=== PATIENT | female | born 1980 | race Caucasian/White ===

== ENCOUNTER 2016-09-30 00:14 | Inpatient (IN) | payer BC, OTHER ==
[2016-09-30] VITALS (10 sets, daily range): BP systolic 111–125; BP diastolic 56–64; PULSE 58–89; RESP 18–20; Ht 167.6 cm; Wt 64.0 kg
[~2016-09-30] VITALS: Ht 167.6 cm; Wt 64.0 kg
[2016-09-30 02:05] LABS: ADD SCAN DIFF NO
[2016-09-30 02:09] LABS: BASOPHILS % 0.4 % (0.0-2.0); EOSINOPHILS # 0.3 10^3/ul (0.0-0.5); EOSINOPHILS % 2.8 % (0.0-7.0); HEMATOCRIT 38.4 % (37.0-47.0); LYMPHOCYTES # 4.6 10^3/ul (0.8-2.9); LYMPHOCYTES % 44.6 % (15.0-51.0); MEAN CORPUSCULAR HEMOGLOBIN 30.8 pg (29.0-33.0); MEAN CORPUSCULAR HGB CONC 33.9 g/dl (32.0-37.0); MEAN PLATELET VOLUME 10.8 fl (7.4-10.4); MONOCYTE # 0.7 10^3/ul (0.3-0.9); NEUTROPHIL # 4.6 10^3/ul (1.6-7.5); NEUTROPHILS % 44.9 % (39.0-77.0); PLATELET COUNT 262 10^3/UL (140-415); RED BLOOD COUNT 4.22 10^6/ul (4.20-5.40); RED CELL DISTRIBUTION WIDTH 11.9 % (11.5-14.5); WHITE BLOOD COUNT 10.3 10^3/ul (4.8-10.8)
[2016-09-30 02:25] LABS: INR 0.96; PROTIME 12.8 Sec (12.2-14.2)
[2016-09-30 02:26] LABS: PARTIAL THROMBOPLASTIN TIME 29.3 Sec (25.0-35.0)
--- NOTE | 2016-09-30 02:27 | RADRPT ---
PROCEDURE: CHEST - 1 VIEW CLINICAL INDICATION: 36-year-old female with chest pain. TECHNIQUE: A single frontal AP portable view of the chest was performed. The images were reviewed on a PACS workstation. COMPARISON: None. FINDINGS: The cardiomediastinal silhouette has a normal appearance. There is no evidence for an infiltrate. There is no evidence for congestive heart failure. There is no evidence for pneumothorax. The osseou s structures are intact. IMPRESSION: No evidence for active cardiopulmonary disease. .Fer Zhou MD, MD Date Time Electronically viewed and signed by .Fer Zhou MD, on 09/30/2016 02:27 .M/
[2016-09-30 02:30] LABS: ALBUMIN 4.1 g/dl (3.3-4.9); CHLORIDE 102 mmol/L (97-110); SODIUM 140 mmol/L (135-144)
[2016-09-30 02:31] LABS: POTASSIUM 3.4 mmol/L (3.5-5.1)
[2016-09-30 02:33] LABS: ALANINE AMINOTRANSFERASE 36 IU/L (13-69); ALKALINE PHOSPHATASE 82 IU/L (42-121); ANION GAP 15 (8-16); ASPARTATE AMINO TRANSFERASE 26 IU/L (15-46); BILIRUBIN,INDIRECT 0.4 mg/dl (0-1.1); BILIRUBIN,TOTAL 0.4 mg/dl (0.2-1.3); BLOOD UREA NITROGEN 14 mg/dl (7-20); CARBON DIOXIDE 26 mmol/L (21-31); CREATININE 0.84 mg/dl (0.44-1.00); GLUCOSE 82 mg/dl (70-220); TOTAL PROTEIN 7.5 g/dl (6.1-8.1)
[2016-09-30 02:34] LABS: CALCIUM 9.7 mg/dl (8.4-10.2)
[2016-09-30 02:56] LABS: B-TYPE NATRIURETIC PEPTIDE 50 PG/ML (0-125)
[2016-09-30 03:14] LABS: TROPONIN-I < 0.012 ng/ml (0.00-0.12)
--- NOTE | 2016-09-30 04:13 | RADRPT ---
PROCEDURE: Noncontrast CT Head. CLINICAL INDICATION: Pain. TECHNIQUE: Noncontrast CT of the head was obtained. The administered radiation dose was CTDI vol = 45 mGy, DLP = 720 mGy-cm. COMPARISON: No pertinent prior examinations were submitted for comparison. FINDINGS: The ventricles and sulci are within normal limits. There is no acute intracranial hemorrhage or ext ra-axial fluid collection. There is no mass effect. No midline shift is identified. There is no loss of long-white differentiation to suggest acute infarction. The orbits are within normal limits. The paranasal sinuses and mastoid air cells are without fluid. No destructive osseous lesion is identified. IMPRESSION: No acute findings. RPTAT: HIKT .Dawson Castillo MD, MD Date Time Electronically viewed and signed by .Dawson Castillo MD, on 09/30/2016 04:12 .T/
--- NOTE | 2016-09-30 05:03 | ERA ---
ER Documentation Chief Complaint Date/Time DATE: 09/30/16 TIME: 05:01 Chief Complaint c/p midsternal cp, sob x2 days. no difficulty walking today. HPI This is a 36-year-old female comes in with complaints of on and off a sending paralysis being in the lower extremities and going up to her waist for the past year. She said it has been getting progressively worse over the past 3 days. She feels that he has difficulty breathing when she lies flat. No nausea no vomiting no chills. No other current complaints. No visual acuity changes. ROS All systems reviewed and are negative except as per history of present illness. Allergies Allergies: Uncoded Allergies: LIDOCAIN (Allergy, Mild, 09/30/16) PMhx/Soc Medical and Surgical Hx: pt denies Medical Hx, pt denies Surgical Hx Hx Alcohol Use: No Hx Substance Use: No Hx Tobacco Use: No Smoking Status: Never smoker Physical Exam Vitals Vital Signs Date Time Temp Pulse Resp B/P Pulse Ox O2 Delivery O2 Flow Rate FiO2 09/30/16 00:22 97.7 72 20 133/76 100 Physical Exam Const: [] Head: Atraumatic Eyes: Normal Conjunctiva ENT: Normal External Ears, Nose and Mouth. Neck: Full range of motion..~ No meningismus. Resp: Clear to auscultation bilaterally Cardio: Regular rate and rhythm, no murmurs Abd: Soft, non tender, non distended. Normal bowel sounds Skin: No petechiae or rashes Back: No midline or flank tenderness Ext: No cyanosis, or edema Neur: Awake and alert Psych: Normal Mood and Affect Result Diagram: 09/30/16 0120 09/30/16 0120 Results 24 hrs Laboratory Tests Test 09/30/16 01:20 White Blood Count 10.310^3/ul Red Blood Count 4.2210^6/ul Hemoglobin 13.0g/dl Hematocrit 38.4% Mean Corpuscular Volume 91.0fl Mean Corpuscular Hemoglobin 30.8pg Mean Corpuscular Hemoglobin Concent 33.9g/dl Red Cell Distribution Width 11.9% Platelet Count 36347^3/UL Mean Platelet Volume 10.8fl Neutrophils % 44.9% Lymphocytes % 44.6% Monocytes % 7.0% Eosinophils % 2.8% Basophils % 0.4% Nucleated Red Blood Cells % 0.0/100WBC Neutrophils # 4.610^3/ul Lymphocytes # 4.610^3/ul Monocytes # 0.710^3/ul Eosinophils # 0.310^3/ul Basophils # 0.010^3/ul Nucleated Red Blood Cells # 0.010^3/ul Prothrombin Time 12.8Sec Prothrombin Time Ratio 1.0 INR International Normalized Ratio 0.96 Activated Partial Thromboplast Time 29.3Sec Sodium Level 140mmol/L Potassium Level 3.4mmol/L Chloride Level 102mmol/L Carbon Dioxide Level 26mmol/L Anion Gap 15 Blood Urea Nitrogen 14mg/dl Creatinine 0.84mg/dl Glucose Level 82mg/dl Calcium Level 9.7mg/dl Total Bilirubin 0.4mg/dl Direct Bilirubin 0.00mg/dl Indirect Bilirubin 0.4mg/dl Aspartate Amino Transf (AST/SGOT) 26IU/L Alanine Aminotransferase (ALT/SGPT) 36IU/L Alkaline Phosphatase 82IU/L Troponin I < 0.012ng/ml B-Type Natriuretic Peptide 50PG/ML Total Protein 7.5g/dl Albumin 4.1g/dl Globulin 3.40g/dl Albumin/Globulin Ratio 1.20 Procedures/MDM EKG: Rate/Rhythm: Normal Sinus Rhythm QRS, ST, T-waves: No changes consistent w/ acute ischemia Impression: No evidence of ischemia or arrhythmia Chest X-ray 1V Interpreted by me: Soft Tissue: No acute abnormalities Bones: No acute abnormalities Mediastinum/Cardiac Silhouette/Lungs: No acute abnormalities CT of the head is negative Medical decision-making: Patient has evidence of a sending paralysis. Neurological examination is showing decreased 2 point discrimination in the lower extremity. At this point Guyon Bhatti syndrome is a consideration. Patient has been or consented for a lumbar puncture via fluoroscopy in the morning. Will be admitted to hospitalist to telemetry for neurological consult further evaluation and management. Departure Diagnosis: Primary Impression: Ascending paralysis Condition: Serious ANDRZEJ MAEJameson Sep 30, 2016 05:03
[2016-09-30] MEDS ORDERED: morphine 2 MG INJ IV PRN (07:00)
[2016-09-30] MEDS ORDERED: ONDANSETRON 4 MG INJ IV PRN (07:00)
[2016-09-30] MEDS ORDERED: NITROGLYCERIN (SL) 0.4 MG TAB SL PRN (07:00)
[2016-09-30] MEDS ORDERED: POTASSIUM CHLORIDE (SR) 10 MEQ TAB PO ONE (07:30)
--- NOTE | 2016-09-30 07:44 | HP ---
DATE OF ADMISSION: 09/30/2016 TIME SEEN: 6:30 a.m. CHIEF COMPLAINT: Chest pain and difficulty walking. HISTORY OF PRESENT ILLNESS: The patient is a 36-year-old female with no significant past medical history who presented to the Emergency Department with the above stated chief complaints. She initially stated that, 2 days ago, she started experiencing midsternal chest pain as well as shortness of breath, right upper extremity numbness and since then has been having significant difficulty with ambulation. She denied any trauma. She does have a history of leg surgery 11 years ago. She denied any headache, fever, chills, palpitations , facial droop or seizure-like activity. On further questioning however, she stated that her symptom of ataxia started a year and half ago when all of a sudden she had difficulty ambulation with decreased sensation, which lasted 1 month. When I asked if she went to hospital , she initially said she only saw primary Doctor in clinic. When I seemed surprised about why she didn't go to hospital, she said she actually went [facility] where she said she saw the head of the Neurology department and had extensive work-up including MRIs and nerve conduction studies. She said all were negative. Since her first episode, she said she has been experiencing similar symptoms every few months and has been to different hospitals, mainly [facility]. At one time she said one Doctor told her that she is "a hysterical woman" and that is her problem. Patient changes her story many times especially when it comes to duration / frequency of her symptoms and also which side of her body she is currently having a problem. she said both, then right side, then left lower ext an so on. When I said to her she told ER that she initially reported right sided deficit, she corrected her self and said yes it is my right side of my body. On physical exam, she reported decreased sensation on right upper and lower ext and she seemed to have decreased strength as well. When she initially came to her room, nurse tried to walk her, but she was having problem initiating movement When she presented to the ER, her vitals were stable and laboratory values showed a potassium of 3.4, otherwise CBC and CMP were unremarkable. Brain CT and chest x-ray were negative for any acute processes. REVIEW OF SYSTEMS: A 12-point review of systems was performed and negative except as in HPI. PAST MEDICAL HISTORY: As per HPI. PAST SURGICAL HISTORY: Leg surgery. SOCIAL HISTORY: Denied a history of tobacco, alcohol or illicit drug use. ALLERGIES: LIDOCAINE. HOME MEDICATIONS: None. PHYSICAL EXAMINATION: VITAL SIGNS: Stable. GENERAL: No acute distress. She is answering questions appropriately, able to speak in full sentences. HEENT: No obvious head deformity. Pupils reactive to light. Extraocular muscles intact. CARDIOVASCULAR: Regular rate and rhythm. No extra sounds. LUNGS: Clear. ABDOMEN: Soft, nontender, nondistended. Positive bowel sounds. EXTREMITIES: No edema. NEUROLOGIC: There is decreased sensation and strength in the right upper and lower extremity. She also is ataxic. No facial droop. No double vision. No tongue deviation. LABORATORY: Potassium 3.4, otherwise CBC and CMP are within normal limits. IMAGING: Chest x-ray and brain CT are negative for any acute processes. IMPRESSION: 1. Gait ataxia with right upper and lower extremity numbness and weakness. 2. Chest pain and shortness of breath. 3. Mild hypokalemia. PLAN: She will be monitored on the telemetry unit. She will be ruled out for ACS, given presentation of chest pain, so we will trend troponin. We will provide breathing treatments as needed for shortness of breath. We will place her on oxygen as needed. As far as her gait ataxia and upper extremity numbness is concerned, a brain CT in the ER was negative. We will obtain an MRI and MRA of brain and neck. We will place a neurology consult. She will have physical therapy. We need to attempt to get all her records at least from [facility] and [facility] Further workup and management per clinical course. Dictated By: ANDRZEJ RANDLE/BRENNA Conf#: [id number] DID#: [id number] SOURAV
[2016-09-30] MEDS: HEPARIN 5,000 UNIT/0.5 ML VIAL SC SCH ×2 (09:00→21:00)
[2016-09-30 17:47] LABS: BARBITURATES NEGATIVE (NEGATIVE); BENZODIAZEPINES NEGATIVE (NEGATIVE); CANNABINOIDS NEGATIVE (NEGATIVE); COCAINE NEGATIVE (NEGATIVE); OPIATES NEGATIVE (NEGATIVE)
--- NOTE | 2016-09-30 19:31 | RADRPT ---
PROCEDURE: MR Thoracic Spine with and without contrast. CLINICAL INDICATION: 36-year-old female with weakness in the bilateral lower extremities. TECHNIQUE: An MRI of the thoracic spine was performed with and without contrast utilizing multiple sequences in the sagittal and axial planes. 10 cc of Magnevist was utilized without complication I mages reviewed on a high-resolution PACS system.. COMPARISON: No prior studies are available for comparison. FINDINGS: The thoracic kyphosis is maintained. The vertebral body heights are maintained. The intervertebral discs are normal in signal and height. The marrow signal intensity is grossly unremarkable. No ac nulato fracture or subluxation is seen. The thoracic spinal cord is normal in signal and caliber. No paravertebral fluid collection or mass is seen. The postcontrast images demonstrate no abnormal cor d, leptomeninges or paraspinal soft. The visualized portions of the chest and upper abdomen are kierra ssly unremarkable. On axial images, the posterior margin of the discs, thecal sac and neural foramin a are normal in appearance at all levels. IMPRESSION: 1. Normal MRI of the thoracic spine with and without contrast. No significant narrowing of the thor acic thecal sac or neural foramina. 2. The thoracic spinal cord is normal in signal and caliber. 3. No abnormal contrast enhancement is seen. RPTAT: HGAS .Luis Cowart MD, Date Time Electronically viewed and signed by .Luis Cowart MD, on 09/30/2016 19:31 .S/
--- NOTE | 2016-09-30 19:54 | RADRPT ---
PROCEDURE: MRI Lumbar Spine with and Without. CLINICAL INDICATION: 36-year-old female with bilateral lower extremity weakness TECHNIQUE: An MRI of the lumbar spine was performed with multiple sequences in the sagittal and ax ial planes with and without contrast. 10 cc of Magnevist was utilized without complication. Images reviewed on a high-resolution PACS system. COMPARISON: None available at the time of dictation. FINDINGS: The alignment of the lumbar spine is normal. No vertebral body subluxation is seen. There is desic cation the L4 55 S1 intervertebral discs with mild loss of disc-space height at L5 S. There is a tr ángel amount of fluid within the L5-S1 disc, without significant edema in the adjacent endplates. No evidence of diskitis/osteomyelitis at this time. The remaining intervertebral discs are normal in he ight and signal intensity. The vertebral body heights and marrow signal are normal. The conus medu llaris is visible at the L1 level and appears grossly normal. The lumbar nerve roots are normal in appearance. The paraspinal soft tissues are unremarkable. No significant paraspinal soft tissue sw elling. Postcontrast images demonstrate no abnormal enhancement involving the conus medullaris, lum bar spinal nerve roots, leptomeninges or paraspinal soft tissues. No abnormal enhancement is seen in the L5-S1 disc-space L1-L2: The posterior margin of the disc is normal in appearance. No significant disc bulge or prot rusion is evident. The central canal and neural foramina are adequately patent. L2-L3: The posterior margin of the disc is normal in appearance. No significant disc bulge or prot rusion is evident. The central canal and neural foramina are adequately patent. L3-L4: There is a 3 mm left paracentral/foraminal disc bulge. The thecal sac is patent measuring 1 2 mm midline AP diameter. There is mild effacement of the left lateral recess. There is mild left neural foraminal narrowing. The right lateral recess and right neural foramen are patent. L4-L5: There is a 2 mm annular disc bulge with underlying contained annular fissure. The thecal sa c and lateral recesses are patent. There is mild bilateral facet spondylosis. There is mild bilate ral neural foraminal narrowing. L5-S1: There moderate spondylosis at L5-S1 with a superimposed 2-3 mm annular disc bulge. The thec al sac and lateral recesses are patent. There is mild bilateral facet spondylosis. There is mild b ilateral neural foraminal narrowing. IMPRESSION: 1. 3 mm left paracentral/foraminal disc bulge at L3-4 with mild narrowing of the left lateral reces s and mild left neural foraminal narrowing. 2. Moderate spondylosis at L5-S1 with mild amount of fluid in the disc space, most likely related t o degenerative changes at this level, without evidence of discitis/osteomyelitis. No significant na rrowing of the lumbar thecal sac, lateral recesses or neural foramina. Short interval follow-up is r ecommended to rule out progression. 3. No abnormal contrast enhancement. RPTAT: HGAS .Luis Cowart MD, Date Time Electronically viewed and signed by .Luis Cowart MD, on 09/30/2016 19:54 .S/
[2016-09-30] MEDS ORDERED: BACLOFEN 10 MG TAB PO ONE (21:00)
[2016-10-01] VITALS (10 sets, daily range): BP systolic 107–115; BP diastolic 59–68; PULSE 61–83; RESP 17–18
--- NOTE | 2016-10-01 03:04 | CONS ---
DATE OF ADMISSION: 09/30/2016 DATE OF CONSULTATION: 09/30/2016 TYPE OF CONSULTATION: Neurological. Thank you, Dr. Schaffer, for your kind referral for evaluation of ataxia. HISTORY OF PRESENT ILLNESS: The patient is a 36-year-old lady with essentially no past medical history who stated that in 03/2015 she started having episodes which may usually start with a sensation of numbness in the feet and at times hands, at times ascending, followed with severe fatigue to the point of feeling generally weak along with a sensation of severe tightness of the chest. Those episodes may last for several weeks and then gradually disappear, and she may have a few months with essentially no symptoms until next time. At some point she had a sensation of numbness and weakness in the face, and she has been to different hospitals, usually emergency room of [facility]. The patient stated that she went to see one of the neurologists at [facility] privately because her insurance did not cover such a referral, and it was only once, and at that time she got MRI of the brain done which did not show any abnormality, and she did not get any definite answers. She was referred to a general neurologist, she could not recall who he was, who suggested possibility of psychogenic symptoms though stated that patient had polyneuropathy. She did have a nerve conduction study done which according to the patient was normal. No records available for review. She stated that at some point she developed similar symptoms when she had injection of lidocaine in dental office almost immediately. No other provoking factors. She denied being depressed or stressed out. This time, patient presented with similar symptoms. She stated that they started somewhere in April last year or May and last for 4 months, but lately in a few days, she could not ambulate normally because of weakness in the legs. She states that the weakness sort of fluctuating and at times she gets cramps and spasms, and at times she could not move the foot. She denied any spinal pain. No bowel or bladder problems. She does experience headaches, especially lately in last few months, at least 1 or few a week. The headache is usually bifrontal, throbbing, not associated with photophobia but with mild nausea. She denies any visual changes with headache with exception of occasional dimming of vision. Usually headache might linger for several hours and get better with Advil or Tylenol. The patient complains of constantly feeling short of breath because of tight sensation in the chest, sort of very tight hug. PAST MEDICAL HISTORY: None. ALLERGIES: LIDOCAINE POSSIBLY. MEDICATIONS PRIOR TO ADMISSION: None. Currently she was put on heparin for DVT prevention. SOCIAL HISTORY: No alcohol, tobacco or drug use. FAMILY HISTORY: Not contributory. REVIEW OF SYSTEMS: All pertinent positives included in the above history of present illness. PHYSICAL EXAMINATION: VITAL SIGNS: Temperature 98.2, pulse 82, respirations 18, blood pressure 125/ 62. GENERAL: The patient not in acute distress, lying in bed. HEENT: Normocephalic, atraumatic head. NECK: No carotid bruits. No thyromegaly. LUNGS: Clear to auscultation bilaterally. CARDIAC: Normal cardiac rhythm and sounds. ABDOMEN: Soft. EXTREMITIES: No cyanosis, clubbing or edema. NEUROLOGIC: She is awake, alert and oriented x3 with fluent speech. Cranial nerve examination shows intact visual sanchez. Pupils reactive from 4 to 2 mm bilaterally. Extraocular movements intact without nystagmus. Symmetrical face. Preserved facial strength. The patient claimed to have diminished sensation on the right side of the face to all modalities including splitting forehead to vibration. Tongue is in midline. Palate elevates symmetrically. Motor strength examination shows normal strength, bulk and tone in upper extremities, in lower extremities normal bulk and tone. The patient claims severe weakness in the legs, more so in the left leg, essentially no movements across the ankle, trace of extension of the knee on the left and maybe 3/5 on the right, better hip flexion about 3+/5. When distracted, she seemed to have better strength. Also, when asked to elevate the legs, she seemed to be able to push weaker heel down with noticeable strength. Sensory examination shows diminution of perception of vibration in bilateral fingers and toes, diminished pinprick in the bilateral feet and distal forelegs but more so, and more of right-sided numbness to pinprick and temperature noticed in whole right-sided extremities. Deep tendon reflexes 2+ throughout. Downgoing toes bilaterally. Coordination is preserved on [id number]-[id number]-[id number] testing. No dysmetria or tremor. Gait was checked. The patient was able to sit up, transfer herself to the edge of the bed and then get up on her feet. She claimed to feel unsteady on her feet but was able to sustain her weight and take a few steps. IMPRESSION: Knpy-ngy-l-half history of intermittent symptoms of weakness, numbness, thoracic tightness. The patient seems to have signs of polyneuropathy on examination which seem to be consistent and symptoms of right- sided hemihypesthesia not as consistent because she splits forehead to vibratory sense, and also weakness in the legs claimed by the patient seemed to be much oxidation operator, if present at all, when distracted or when asked to walk, so clearly there is some psychological component to the symptoms. I think it is still reasonable to perform full workup and imaging of neuraxis with contrast. By the way, MRI of the thoracic spine was done as well as an MRI of the lumbar spine. Thoracic was done with contrast and was normal. Lumbar without contrast shows mild degenerative changes of lumbar 3-4 level with disk protrusion as well as moderate spondylosis L5-S1. I think it is reasonable to obtain MRI of the brain and cervical spine for completeness of the workup. Will obtain lumbar puncture, send it for basic testing of protein, glucose, cell count and differential as well as MS panel. For evaluation of polyneuropathy which seemed to be generally present, I will obtain hemoglobin A1c, TSH, B12, serum immunofixation, also will request HIV testing as well as ROSA panel. Continue physical therapy. If workup is negative, probably the patient could be discharged. She stated that she changed her insurance and now she is able to follow up with academic neurologists at [facility], so followup with them would be preferable compared to a general neurologist in the area. Thank you very much for this interesting consultation. Dictated By: STEPHANY GERMAIN/BRENNA Conf#: [id number] DID#: [id number] SOURAV
[2016-10-01 07:41] LABS: ADD SCAN DIFF NO
[2016-10-01 07:44] LABS: BASOPHILS % 0.4 % (0.0-2.0); EOSINOPHILS # 0.3 10^3/ul (0.0-0.5); EOSINOPHILS % 2.8 % (0.0-7.0); HEMATOCRIT 39.4 % (37.0-47.0); HEMOGLOBIN 13.1 g/dl (12.0-16.0); LYMPHOCYTES # 2.9 10^3/ul (0.8-2.9); LYMPHOCYTES % 32.5 % (15.0-51.0); MEAN CORPUSCULAR HEMOGLOBIN 30.4 pg (29.0-33.0); MEAN CORPUSCULAR HGB CONC 33.2 g/dl (32.0-37.0); MEAN CORPUSCULAR VOLUME 91.4 fl (82.0-101.0); MEAN PLATELET VOLUME 10.6 fl (7.4-10.4); MONOCYTE # 0.8 10^3/ul (0.3-0.9); MONOCYTES % 8.5 % (0.0-11.0); NEUTROPHILS % 55.5 % (39.0-77.0); PLATELET COUNT 254 10^3/UL (140-415); RED BLOOD COUNT 4.31 10^6/ul (4.20-5.40); RED CELL DISTRIBUTION WIDTH 11.9 % (11.5-14.5)
[2016-10-01 07:56] LABS: POTASSIUM 4.3 mmol/L (3.5-5.1)
[2016-10-01 07:59] LABS: CREATININE 0.7 mg/dl (0.44-1.00)
[2016-10-01 08:00] LABS: CALCIUM 9.4 mg/dl (8.4-10.2); MAGNESIUM 1.9 mg/dl (1.7-2.5); PHOSPHORUS 4.8 mg/dl (2.5-4.9)
[2016-10-01] MEDS: HEPARIN 5,000 UNIT/0.5 ML VIAL SC SCH ×2 (09:00→21:00)
--- NOTE | 2016-10-01 16:42 | PN ---
Date/Time of Note Date/Time of Note DATE: 10/01/16 TIME: 16:40 Assessment/Plan VTE Prophylaxis VTE Prophylaxis Intervention: heparin Lines/Catheters IV Catheter Type (from [facility]): [facility] Urinary Cath still in place: No Assessment/Plan Chief Complaint/Hosp Course 1. Gait ataxia with right upper and lower extremity numbness and weakness -MRI Lumbar and Thoracic negative, F/U on Cervical and Brain MRI as well as LP -Neuro consult appreciated -cont PT 2. Chest pain and shortness of breath likely 2/2 anxiety 3. Mild hypokalemia-resolved PPx- Heparin Problems: Subjective 24 Hr Interval Summary Musculoskeletal: bone/joint pain Exam/Review of Systems Vital Signs Vitals Vital Signs Date Time Temp Pulse Resp B/P Pulse Ox O2 Delivery O2 Flow Rate FiO2 10/01/16 16:10 77 10/01/16 15:50 97.2 18 114/62 100 09/30/16 06:00 Room Air Intake and Output 09/30/16 09/30/16 10/01/16 15:00 23:00 07:00 Intake Total 400 ml 650 ml Balance 400 ml 650 ml Exam Constitutional: alert, oriented Respiratory: clear to auscultation Cardiovascular: regular rate and rhythm Gastrointestinal: soft, No distended Musculoskeletal: nl extremities to inspection Results Result Diagram: 10/01/16 0647 10/01/16 0653 Results 24 hrs Laboratory Tests Test 09/30/16 16:43 10/01/16 06:42 10/01/16 06:47 10/01/16 06:53 Urine Opiates Screen NEGATIVE Urine Barbiturates NEGATIVE Urine Amphetamines Screen NEGATIVE Urine Benzodiazepines Screen NEGATIVE Urine Cocaine Screen NEGATIVE Urine Cannabinoids NEGATIVE Hemoglobin A1c 4.8 Vitamin B12 Level 899 Thyroid Stimulating Hormone (TSH) 2.140 HIV (1&2) Antibody NEGATIVE White Blood Count 9.0 Red Blood Count 4.31 Hemoglobin 13.1 Hematocrit 39.4 Mean Corpuscular Volume 91.4 Mean Corpuscular Hemoglobin 30.4 Mean Corpuscular Hemoglobin Concent 33.2 Red Cell Distribution Width 11.9 Platelet Count 254 Mean Platelet Volume 10.6 H Neutrophils % 55.5 Lymphocytes % 32.5 Monocytes % 8.5 Eosinophils % 2.8 Basophils % 0.4 Nucleated Red Blood Cells % 0.0 Neutrophils # 5.0 Lymphocytes # 2.9 Monocytes # 0.8 Eosinophils # 0.3 Basophils # 0.0 Nucleated Red Blood Cells # 0.0 Sodium Level 138 Potassium Level 4.3 Chloride Level 106 Carbon Dioxide Level 24 Anion Gap 12 Blood Urea Nitrogen 13 Creatinine 0.70 Glucose Level 88 Calcium Level 9.4 Phosphorus Level 4.8 Magnesium Level 1.9 Medications Medications Current Medications Morphine Sulfate (morphine) 2 mg Q4H PRN IV PAIN LEVEL 6-10; Start 09/30/16 at 07:00 Nitroglycerin (Nitroglycerin (Sl Tab) 0.4 Mg) 1 tab Q5M PRN SL ANGINA; Start at 07:00 Ondansetron HCl (Zofran Inj) 4 mg Q4H PRN IV NAUSEA AND/OR VOMITING; Start at 07:00 Heparin Sodium (Porcine) (Heparin (5000 Units/0.5 ml)) 5,000 unit BID SC ; Start 09/30/16 at 09:00 JULES VIERA Oct 01, 2016 16:42
--- NOTE | 2016-10-01 17:58 | RADRPT ---
PROCEDURE: MR Brain without and with contrast. CLINICAL INDICATION: Neurologic deficit, possible multiple sclerosis, ataxia TECHNIQUE: A high resolution MRI of the brain was performed utilizing the following sequences: Sag ittal and axial T1 weighted, axial T2 weighted, axial FLAIR, coronal GRE, and axial diffusion weight ed with ADC mapping. Images were reviewed high-resolution PACS workstation. Additional axial and co laurel post contrast images were obtained. 10cc of Magnevist was administered intravenously without r eported complication. COMPARISON: Correlation head CT yesterday FINDINGS: No acute parenchymal hemorrhage, significant mass effect, or midline shift. No evidence of recent in farct. A tiny focus of GRE susceptibility is seen in the right inferior frontal lobe (series 4 image 28). There is also curvilinear enhancement at this location extending to the right frontal cortex (series 10 image 96). Single FLAIR hyperintense focus in the right external capsule. No FLAIR hype rintense radiating lesions are seen perpendicular to the callosal septal margin. No posterior fossa lesions are identified. No evidence of lesion enhancement or acute diffusion restriction. The ventricles are normal in size for age. Normal flow voids are visible in the proximal intracrania l arteries suggesting their patency. The visualized paranasal sinuses and mastoids are grossly clear. No abnormal mass like parenchymal, dural or leptomeningeal enhancement. IMPRESSION: Single FLAIR hyperintense focus in the right external capsule is nonspecific. This may be a sequela of headaches, trauma, or possibly demyelination. However, the overall MR imaging pattern is not ty pical for multiple sclerosis. No evidence of lesion enhancement or diffusion restriction. 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 RPTAT: AA .Hernán Alcocer MD, MD Date Time Electronically viewed and signed by .Hernán Alcocer MD, MD on 10/01/2016 17:58 .T/
--- NOTE | 2016-10-01 18:01 | RADRPT ---
PROCEDURE: MRI Cervical spine without and with contrast CLINICAL INDICATION: Neurologic deficit, possible multiple sclerosis TECHNIQUE: An MRI of the cervical spine was performed utilizing the following sequences: Sagittal and axial T1 weighted, sagittal and axial T2 weighted, axial GRE, and sagittal T2 weighted with fat saturation. Additional post contrast sequences were acquired. 10 cc Magnevist was administered intr avenously without reported complication. COMPARISON: none FINDINGS: No acute vertebral compression fracture. No diffuse marrow replacing process. The cervical cord demonstrates normal signal intensity. C2-3: The disk is preserved height. No significant disk protrusion, spinal canal or foraminal sten osis. C3-4: The disk is preserved height. No significant disk protrusion, spinal canal or foraminal nadir nosis. C4-5: The disk is preserved height. Minimal posterior disk bulge without significant spinal canal or foraminal narrowing. C5-6: The disk is preserved height. Tiny central disk annular fissure. No significant spinal canal or foraminal stenosis. C6-7: The disk is preserved height. No significant disk protrusion, spinal canal or foraminal sten osis. C7-T1: The disk is preserved height. No significant disk protrusion, spinal canal or foraminal nadir nosis. No abnormal intraspinal enhancement. IMPRESSION: No evidence of cord edema or cord demyelination. Minimal degenerative changes C4-5 and C5-6. RPTAT: AA .Hernán Alcocer MD, MD Date Time Electronically viewed and signed by .Hernán Alcocer MD, on 10/01/2016 18:00 .T/
[2016-10-01] MEDS ORDERED: IBUPROFEN 400 MG TAB PO PRN (20:30)
[2016-10-01] MEDS ORDERED: BACLOFEN 10 MG TAB PO ONE (20:30)
--- NOTE | 2016-10-01 21:07 | RADRPT ---
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 Physician: ANDRZEJ LUU Quality: Technically Difficult Study Procedures: Transthoracic echocardiogram with complete 2D, M-Mode, and doppler examination. Indications: Chest Pressure. 2D/M Mode Doppler Measurement Value Normal Ranges Measurement Value Normal Ranges LVIDd 2D 4.8 3.5 - 5.6 cm AV Peak Charli 1.0 m/sec LVIDs 2D 3.0 2.1 - 4.1 cm AV Peak PG 4.0 mmHg FS 2D 36.8 % LVOT Peak Charli 0.9 m/sec LVPWd 2D 0.8 0.6 - 1.1 cm LVOT Peak PG 3.0 mmHg IVSd 2D 0.7 0.6 - 1.1 cm MV E Peak Charli 0.9 m/sec IVS/LVPW 2D 0.9 MV A Peak Charli 0.7 m/sec AoR Diam 2D 2.5 2.0 - 3.7 cm MV E/A 1.4 LA/Ao 2D 1 0 - 1 MV Decel Time 141 msec EDV 2D 111.0 cm3 MV E/A 1.4 ESV 2D 28.1 cm3 LA Dimen 2D 3.1 2.3 - 4.0 cm Findings Left Ventricle: Normal left ventricular systolic function. Normal left ventricular cavity size. Normal left ventricular wall thickness. Ejection fraction is visually estimated at 55 %. Tissue Doppler/Mitral Doppler indices are within normal limits. Right Ventricle: Normal right ventricular size. Normal right ventricular systolic function. Left Atrium: The left atrium is normal in size. Right Atrium: The right atrium is normal in size. Mitral Valve: Normal appearance and function of the mitral valve with trace physiologic regurgitation. Aortic Valve: Normal appearance of the aortic valve. No significant aortic stenosis or insufficiency. Tricuspid Valve: Normal appearance and function of the tricuspid valve with trace physiologic regurgitation. Normal right ventricular systolic pressure. Pulmonic Valve: Normal pulmonic valve appearance. Pericardium: Normal pericardium with no significant pericardial effusion. Aorta: Normal aortic root. IVC: Normal size and normal respiratory collapse consistent with normal right atrial pressure. Conclusions 1.Normal left ventricular systolic function. Normal left ventricular cavity size. Normal left ventricular wall thickness. Ejection fraction is visually estimated at 55 %. Tissue Doppler/Mitral Doppler indices are within normal limits. 2.Normal appearance and function of the mitral valve with trace physiologic regurgitation. 3.Normal appearance and function of the tricuspid valve with trace physiologic regurgitation. Normal right ventricular systolic pressure. Electronically Signed By: Chris Boone 01-Oct-2016 21:06:15 -0700 Patient Name: SINAI RUANO Study Date: 30-Sep-2016 [id number]
[2016-10-02] VITALS (12 sets, daily range): BP systolic 104–122; BP diastolic 59–69; PULSE 72–89; RESP 16–18
[2016-10-02] MEDS: HEPARIN 5,000 UNIT/0.5 ML VIAL SC SCH ×2 (07:28→21:00)
[2016-10-02 07:57] LABS: POTASSIUM 4.2 mmol/L (3.5-5.1)
[2016-10-02 08:00] LABS: CREATININE 0.64 mg/dl (0.44-1.00)
[2016-10-02 08:01] LABS: CALCIUM 9.4 mg/dl (8.4-10.2)
[2016-10-02 13:27] LABS: ANA SCREEN NEGATIVE (NEGATIVE)
--- NOTE | 2016-10-02 13:37 | CONS ---
Date/Time of Note Date/Time of Note DATE: 10/02/16 TIME: 13:28 Consult Date/Type/Reason Admit Date/Time Oct 01, 2016 at 11:28 Initial Consult Date Type of Consultation: neurology Subjective Yesterday AM felt better, but after the MRI got more fatigue and weakness, better today Objective Vital Signs Date Time Temp Pulse Resp B/P Pulse Ox O2 Delivery O2 Flow Rate FiO2 10/02/16 12:16 76 10/02/16 11:38 98.5 18 116/69 100 09/30/16 06:00 Room Air Intake and Output 10/01/16 10/01/16 10/02/16 15:00 23:00 07:00 Intake Total 800 ml Balance 800 ml Results/Medications Result Diagram: 10/01/16 0647 10/02/16 0705 Results 24 hrs Laboratory Tests Test 10/02/16 07:05 Sodium Level 138 Potassium Level 4.2 Chloride Level 105 Carbon Dioxide Level 23 Anion Gap 14 Blood Urea Nitrogen 12 Creatinine 0.64 Glucose Level 88 Calcium Level 9.4 Medications Current Medications Morphine Sulfate (morphine) 2 mg Q4H PRN IV PAIN LEVEL 6-10; Start 09/30/16 at 07:00 Nitroglycerin (Nitroglycerin (Sl Tab) 0.4 Mg) 1 tab Q5M PRN SL ANGINA; Start at 07:00 Ondansetron HCl (Zofran Inj) 4 mg Q4H PRN IV NAUSEA AND/OR VOMITING; Start at 07:00 Heparin Sodium (Porcine) (Heparin (5000 Units/0.5 ml)) 5,000 unit BID SC ; Start 09/30/16 at 09:00 Ibuprofen (Motrin) 400 mg Q6H PRN PO PAIN OR TEMP ABOVE 38C Last administered on 10/01/16t 20:27; Admin Dose 400 MG; Start 10/01/16 at 20:30 Assessment/Plan Chief Complaint/Hosp Course PHYSICAL EXAMINATION: NEUROLOGIC: She is awake, alert and oriented x3 with fluent speech. Cranial nerve examination shows intact visual sanchez. Pupils reactive from 4 to 2 mm bilaterally. Extraocular movements intact without nystagmus. Symmetrical face. Preserved facial strength. The patient claimed to have diminished sensation on the right side of the face to all modalities including splitting forehead to vibration. Tongue is in midline. Palate elevates symmetrically. Motor strength examination shows normal strength, bulk and tone in upper extremities, in lower extremities normal bulk and tone. The patient claims 3/5 weakness in the legs, 4 with reassurance and prompting. Sensory examination shows diminution of perception of vibration in bilateral fingers and toes, diminished pinprick in the bilateral feet and distal forelegs but more so, and more of right-sided numbness to pinprick and temperature noticed in whole right- sided extremities. Deep tendon reflexes 2+ throughout. Downgoing toes bilaterally. Coordination is preserved on nhtauy-[id number] testing. No dysmetria or tremor. Gait was checked. The patient was able to sit up, transfer herself to the edge of the bed and then get up on her feet. Able to ambulate, wide based.. IMPRESSION: Ovyd-iwd-y-half history of intermittent symptoms of weakness, numbness, thoracic tightness. The patient seems to have signs of polyneuropathy on examination which seem to be consistent and symptoms of right- sided hemihypesthesia not as consistent because she splits forehead to vibratory sense, and also weakness in the legs claimed by the patient seemed to be much director property, if present at all, when distracted or when asked to walk, so clearly there is some psychological component to the symptoms. MRI neuroaxis WNL, sinle white matter lesion omn MRI brain, not specific. TSH, B12, HIV negative. immunofixation, ROSA pending, LP pending. OK to d/c after LP. She has neurology appt at [facility] next week. PT outpt . Problems: STEPHANY MANTILLA MD Oct 02, 2016 13:37
--- NOTE | 2016-10-02 16:40 | PDOCDIS ---
Discharge Instructions CONDITION Patient Condition: Good HOME CARE INSTRUCTIONS: Diet Instructions: Regular ACTIVITY: Activity Restrictions: No Restrictions FOLLOW UP/APPOINTMENTS Appointments F/U WITH YOUR PCP IN 1-2 WEEKS JULES VIERA Oct 02, 2016 16:40
--- NOTE | 2016-10-02 17:17 | PN ---
Date/Time of Note Date/Time of Note DATE: 10/02/16 TIME: 17:16 Assessment/Plan VTE Prophylaxis VTE Prophylaxis Intervention: heparin Lines/Catheters IV Catheter Type (from Nrs): Saline Lock Urinary Cath still in place: No Assessment/Plan Chief Complaint/Hosp Course 1. Gait ataxia with right upper and lower extremity numbness and weakness -MRI Lumbar and Thoracic negative, F/U on Cervical and Brain MRI as well as LP -Neuro consult appreciated -cont PT -F/U on Acetylcholine Ab 2. Chest pain and shortness of breath likely 2/2 anxiety 3. Mild hypokalemia-resolved PPx- Heparin Problems: Subjective 24 Hr Interval Summary Musculoskeletal: other (weakness) Exam/Review of Systems Vital Signs Vitals Vital Signs Date Time Temp Pulse Resp B/P Pulse Ox O2 Delivery O2 Flow Rate FiO2 10/02/16 16:30 83 10/02/16 16:13 99.2 17 106/59 100 09/30/16 06:00 Room Air Intake and Output 10/01/16 10/01/16 10/02/16 15:00 23:00 07:00 Intake Total 800 ml Balance 800 ml Exam Constitutional: alert Respiratory: clear to auscultation Cardiovascular: regular rate and rhythm Gastrointestinal: soft, No distended ( ) Musculoskeletal: nl extremities to inspection Results Result Diagram: 10/01/16 0647 10/02/16 0705 Results 24 hrs Laboratory Tests Test 10/02/16 07:05 Sodium Level 138 Potassium Level 4.2 Chloride Level 105 Carbon Dioxide Level 23 Anion Gap 14 Blood Urea Nitrogen 12 Creatinine 0.64 Glucose Level 88 Calcium Level 9.4 Medications Medications Current Medications Morphine Sulfate (morphine) 2 mg Q4H PRN IV PAIN LEVEL 6-10; Start 09/30/16 at 07:00 Nitroglycerin (Nitroglycerin (Sl Tab) 0.4 Mg) 1 tab Q5M PRN SL ANGINA; Start at 07:00 Ondansetron HCl (Zofran Inj) 4 mg Q4H PRN IV NAUSEA AND/OR VOMITING; Start at 07:00 Heparin Sodium (Porcine) (Heparin (5000 Units/0.5 ml)) 5,000 unit BID SC ; Start 09/30/16 at 09:00 Ibuprofen (Motrin) 400 mg Q6H PRN PO PAIN OR TEMP ABOVE 38C Last administered on 10/01/16t 20:27; Admin Dose 400 MG; Start 10/01/16 at 20:30 JULES VIERA Oct 02, 2016 17:17
[2016-10-03] MEDS: BACLOFEN 10 MG TAB PO ONE ×2 (00:57→01:00)
[2016-10-03 04:03] VITALS: BP 104/62; RESP 17
[2016-10-03 08:20] VITALS: BP 119/56; RESP 18
[2016-10-03] MEDS: HEPARIN 5,000 UNIT/0.5 ML VIAL SC SCH (09:00)
[2016-10-03 11:41] VITALS: BP 115/57; RESP 20
--- NOTE | 2016-10-03 16:15 | DS ---
DATE OF ADMISSION: 10/01/2016 DATE OF DISCHARGE: 10/03/2016 DISCHARGE DIAGNOSES: 1. Gait ataxia with right upper and lower extremity numbness and weakness. MRI of the brain and en tire spine is negative for any pathology. Workup has been negative. Etiology is unclear at this ti hi. The patient is to follow up with her neurologist. HOSPITAL COURSE: The patient is a 36-year-old female with a history of numbness and weakness throug hout her body. It has been intermittent for the past year and a half. The patient apparently could not walk prior to hospitalization. The patient has had extensive workup in the past and does follo w up with a neurologist at [facility]. She has had nerve conduction studies and MRIs of her brain and spine in the past that were all negative. She had an MRI, once again, of her brain and entire spine, and no pathology was noted. The patient was seen by neurology. No etiology was noted for he r symptoms. It was felt that the patient may have psychosomatic issues, but this is not fully clear during the hospitalization. The patient denies any psychological stress, anxiety, depression, or a ny abuse in the past. Of note, the patient's A and A was negative. Urine toxicology was negative. HIV was negative. Because no further etiology could be noted for her symptoms, the patient felt it better if she follows up with her neurologist. The patient was able to ambulate with her 's assistance. Neurology felt that there was no further indication for further workup. Once again, s he will follow up with her neurologist. On the day of discharge, the patient's vitals, labs, and ph ysical exam were stable. She had no acute complaints. Her questions were answered. CONDITION ON DISCHARGE: Stable. DISPOSITION: To home. MEDICATIONS: The patient has no reported home medications. No new medications prescribed. FOLLOWUP: The patient is to follow up with her PCP and neurologist in 1 to 2 weeks. Greater than 30 minutes was spent coordinating discharge of patient. Dictated By: JULES VIERA MD BS/NTS Conf#: [id number] DID#: [id number]
== END 2016-10-03 12:30 | disposition home or self-care (01) | DRG 93 ==
LOC: E/R 00:14 → TEL 04:53 → UNDOADMOB 04:53 → OBSVTOIN 10-01 11:28
PROVIDERS: ADMIT Internal Medicine; ATTEND Internal Medicine
DX: R26.0 Ataxic gait (principal); G62.9 Polyneuropathy, unspecified; R53.1 Weakness; R20.0 Anesthesia of skin; E87.6 Hypokalemia; Z88.4 Allergy status to anesthetic agent
CPT/HCPCS: 36415; 70450; 70553; 71010; 72142; 72147; 72149; 80048; 80053; 80307; 82607; 83036; 83519; 83735; 83880; 84100; 84443; 84484; 85025; 85610; 85730; 86038; 86320; 86617; 86703; 93005; 93306; 97110; 97116; 97163; 97530; G0378; J1644

== ENCOUNTER → 2016-11-17 | Outpatient (CLI) | payer BC | END | disposition home or self-care (01) | LOC: LAB 11-13 08:59 | PROVIDERS: ATTEND General Practice | DX: G70.00 Myasthenia gravis without (acute) exacerbation (principal) ==

== ENCOUNTER → 2017-04-29 | Outpatient (CLI) | payer BC ==
--- NOTE | 2017-04-29 17:19 | CARRPT ---
DATE OF PROCEDURE: 04/29/2017 REASON FOR TESTING: Shortness of breath. BASELINE VITAL SIGNS AND ELECTROCARDIOGRAM: Pulse 71, blood pressure 123/61. Electrocardiogram phill carrillo reveals normal sinus rhythm, rate of 71, normal axis, normal intervals, with isolated T-wave i nversion in lead aVL. PROCEDURE: The patient underwent standard [place] protocol, completing 2-1/2 stages for a somewhat po or to fair exercise tolerance. The patient stopped due to development of shortness of breath. The patient exercised for a total of 7 minutes and 39 seconds. The patient achieved greater than 85% of maximum heart rate and a peak double product of over 26,000. SYMPTOMS: The patient had shortness of breath, no significant chest pain. ELECTROCARDIOGRAM FINDINGS: At baseline, patient had a preserved EF with normal wall motion in all segments. At peak exercise, the patient developed mild hypokinesis in the anterior septum, inferose ptal and lateral wall, which returned to normal during recovery. ELECTROCARDIOGRAM FINDINGS: At peak exercise, the patient did develop approximately [address] depress ions in the inferior leads II and III. . IMPRESSION: After exercising a total of 7 minutes 39 seconds completing 2-1/2 stages, peak double p roduct greater than 26,000, stopping due to development of shortness of breath, the patient did deve lop ST depressions in the inferolateral leads and associated hypokinesis in the septum and lateral w alls making this stress test positive for exercise-induced ischemia. Dictated By: LINDA WINTERS/BRENNA Conf#: [id number] DID#: [id number]
== END | disposition home or self-care (01) ==
LOC: EKG 09:51
PROVIDERS: ATTEND Physician Assistant Medical
DX: R06.02 Shortness of breath (principal)
CPT/HCPCS: 93350

== ENCOUNTER 2017-05-02 15:42 | Observation (INO) | payer BC ==
[~2017-05-02] VITALS: Ht 167.6 cm; Wt 140.4 kg
--- NOTE | 2017-05-02 17:16 | ERD ---
ER Documentation Chief Complaint Chief Complaint CP and SOB x 3 days, worsening x today HPI The patient is a 37-year-old female, presenting to the ER because of chronic chest pain and chronic shortness of breath for the last 11 months. She has extensive workup recently, she was seen at multiple hospitals. She had a stress test by Dr. Boone 3 days ago that is positive for stress-induced ischemia. She is awaiting for angiogram. She denies chest pain with exertion/ vomiting/diaphoresis, abdominal pain, vomiting, dysuria, diarrhea. She does not smoke nor drink. Past medical history/surgical history: Denied ROS All systems reviewed and are negative except as per history of present illness. Medications Home Meds No Active Prescriptions or Reported Meds Allergies Allergies: Coded Allergies: lidocaine (Verified Allergy, Severe, 05/02/17) GENERALIZED MUSCLE WEAKNESS, PARALYSIS PMhx/Soc History of Surgery: Yes (leg surgery @ 13 years old) Anesthesia Reaction: Yes (allergic to lidocaine) Hx Neurological Disorder: No Hx Respiratory Disorders: No Hx Cardiac Disorders: No Hx Psychiatric Problems: No Hx Miscellaneous Medical Probl: Yes (ataxia) Hx Alcohol Use: No (rare) Hx Substance Use: No Hx Tobacco Use: Yes Physical Exam Vitals Vital Signs Date Time Temp Pulse Resp B/P Pulse Ox O2 Delivery O2 Flow Rate FiO2 05/02/17 20:00 99.0 92 16 138/88 99 Room Air 05/02/17 16:06 98.3 98 19 130/87 100 Physical Exam Const: No acute distress.Anxious Head: Atraumatic. Eyes: Normal Conjunctiva. ENT: Normal External Ears, Nose and Mouth. Neck: Full range of motion. No meningismus. Resp: Clear to auscultation bilaterally. Cardio: Regular rate and rhythm. Abd: Soft, non distended, normal bowel sounds, non tender. Skin: No petechiae or rashes. Back: No midline or flank tenderness. Ext: No cyanosis, or edema. Neur: Awake and alert. No focal deficit Psych: Normal Mood and Affect. Result Diagram: 05/02/17181905/02/171819 Results 24 hrs Laboratory Tests Test 05/02/17 18:20 05/02/17 20:15 White Blood Count 6.310^3/ul Red Blood Count 4.3410^6/ul Hemoglobin 13.1g/dl Hematocrit 38.8% Mean Corpuscular Volume 89.4fl Mean Corpuscular Hemoglobin 30.2pg Mean Corpuscular Hemoglobin Concent 33.8g/dl Red Cell Distribution Width 11.9% Platelet Count 74285^3/UL Mean Platelet Volume 10.5fl Neutrophils % 48.2% Lymphocytes % 42.8% Monocytes % 7.0% Eosinophils % 1.3% Basophils % 0.5% Nucleated Red Blood Cells % 0.0/100WBC Neutrophils # 3.010^3/ul Lymphocytes # 2.710^3/ul Monocytes # 0.410^3/ul Eosinophils # 0.110^3/ul Basophils # 0.010^3/ul Nucleated Red Blood Cells # 0.010^3/ul Sodium Level 142mmol/L Potassium Level 3.6mmol/L Chloride Level 103mmol/L Carbon Dioxide Level 28mmol/L Anion Gap 15 Blood Urea Nitrogen 11mg/dl Creatinine 0.76mg/dl Glucose Level 93mg/dl Calcium Level 9.3mg/dl Troponin I < 0.012ng/ml Bedside Urine pH (LAB) 8.5 Bedside Urine Protein (LAB) Negative Bedside Urine Glucose (UA) Negative Bedside Urine Ketones (LAB) Negative Bedside Urine Blood 1+ Bedside Urine Nitrite (LAB) Negative Bedside Urine Leukocyte Esterase (L Negative Current Medications Medications (Trade) Dose Ordered Sig/Nestor Route PRN Reason Start Time Stop Time Status Last Admin Dose Admin Aspirin (Aspirin) 325 mg ONCE ONCE PO 05/02/17 20:30 05/02/17 20:31 DC 05/02/17 20:28 Procedures/[place] [id number] Radiology Main Line: [phone] DIAGNOSTIC IMAGING REPORT Patient: SINAI RUANO : 1980 Age: 37 Sex: F MR #: [id number] DOS: 05/02/17 0000 Ordering MD: NOVA LINDA MD Location: E/R Room/Bed: PROCEDURE: Chest xray. CLINICAL INDICATION: Shortness of breath TECHNIQUE: A portable semiupright AP view of the chest was obtained. COMPARISON: 09/30/2016 FINDINGS: The cardiomediastinal silhouette is within normal limits. The lungs are well expanded and show normal vascularity. No focal opacity, pleural effusion, or pneumothorax is identified. The skeletal structures and soft tissues are unremarkable. IMPRESSION: No acute intrathoracic abnormality. RPTAT:HKMK .Veronica Marvin MD, Date Time Electronically viewed and signed by .Veronica Marvin MD, MD on 05/02/2017 18: 24 .K/ CC: NOVA LINDA MD EKG: Read by emergency physician Rate/Rhythm: Normal Sinus Rhythm 82 beats/min Sinus arrhythmia QRS, ST, T-waves: No ST elevation, no T inversion, Impression: Abnormal EKG MEDICAL MAKING DECISION: The patient is a 37-year-old female, presenting with acute on chronic chest pain with positive stress induced ischemia recently. She was treated with aspirin 325 mg p.o. with good response The differential diagnoses considered include but are not limited to acute coronary syndrome, acute myocardial infarction, pericarditis, pulmonary embolism , aortic dissection, pneumonia, pleural effusion, pneumothorax, GERD, chest wall pain, anxiety attack, panic attack Consultation: I discussed the patient with Dr. Buchanan at 6:30 PM who was on-call for Dr. Boone, who agreed to consult the patient. Departure Diagnosis: Primary Impression: Chest pain Condition: Stable Comments I discussed the findings with the patient. I discussed the patient with the on- call hospitalist Dr. Azul who was made aware of the lab, the treatment, the patient condition. The patient is admitted to [facility] at 8 pm for 24 hr obs Disclaimer: Inadvertent spelling and grammatical errors are likely due to EHR/ dictation software use and do not reflect on the overall quality of patient care. Also, please note that the electronic time recorded on this note does not necessarily reflect the actual time of the patient encounter. NOVA LINDA MD May 02, 2017 17:16
--- NOTE | 2017-05-02 18:24 | RADRPT ---
PROCEDURE: Chest xray. CLINICAL INDICATION: Shortness of breath TECHNIQUE: A portable semiupright AP view of the chest was obtained. COMPARISON: 09/30/2016 FINDINGS: The cardiomediastinal silhouette is within normal limits. The lungs are well expanded and show norm al vascularity. No focal opacity, pleural effusion, or pneumothorax is identified. The skeletal st ructures and soft tissues are unremarkable. IMPRESSION: No acute intrathoracic abnormality. RPTAT:HKMK .Veronica Marvin MD, MD Date Time Electronically viewed and signed by .Veronica Marvin MD, MD on 05/02/2017 18:24 .K/
[2017-05-02 18:50] LABS: BASOPHILS % 0.5 % (0.0-2.0); EOSINOPHILS # 0.1 10^3/ul (0.0-0.5); EOSINOPHILS % 1.3 % (0.0-7.0); HEMATOCRIT 38.8 % (37.0-47.0); HEMOGLOBIN 13.1 g/dl (12.0-16.0); LYMPHOCYTES # 2.7 10^3/ul (0.8-2.9); LYMPHOCYTES % 42.8 % (15.0-51.0); MEAN CORPUSCULAR HEMOGLOBIN 30.2 pg (29.0-33.0); MEAN CORPUSCULAR HGB CONC 33.8 g/dl (32.0-37.0); MEAN CORPUSCULAR VOLUME 89.4 fl (82.0-101.0); MEAN PLATELET VOLUME 10.5 fl (7.4-10.4); MONOCYTE # 0.4 10^3/ul (0.3-0.9); NEUTROPHILS % 48.2 % (39.0-77.0); PLATELET COUNT 264 10^3/UL (140-415); RED BLOOD COUNT 4.34 10^6/ul (4.20-5.40); RED CELL DISTRIBUTION WIDTH 11.9 % (11.5-14.5); WHITE BLOOD COUNT 6.3 10^3/ul (4.8-10.8)
[2017-05-02 19:15] LABS: ANION GAP 15 (8-16); BLOOD UREA NITROGEN 11 mg/dl (7-20); CALCIUM 9.3 mg/dl (8.4-10.2); CARBON DIOXIDE 28 mmol/L (21-31); CHLORIDE 103 mmol/L (97-110); CREATININE 0.76 mg/dl (0.44-1.00); GLUCOSE 93 mg/dl (70-220); POTASSIUM 3.6 mmol/L (3.5-5.1); SODIUM 142 mmol/L (135-144)
[2017-05-02 19:49] LABS: TROPONIN-I < 0.012 ng/ml (0.00-0.12)
[2017-05-02 20:16] LABS: URINE BLOOD (Dip) POC 1+ (NEGATIVE)
[2017-05-02] MEDS ORDERED: ASPIRIN 325 MG TAB PO ONE (20:30)
[2017-05-02 21:14] VITALS: TEMP 98.8
[2017-05-02 22:07] VITALS: BP 118/73; PULSE 73; RESP 18
[2017-05-02 22:18] VITALS: Ht 167.6 cm; Wt 140.4 kg
[2017-05-02] MEDS ORDERED: morphine 2 MG INJ IV PRN (23:30)
[2017-05-02] MEDS ORDERED: NITROGLYCERIN (SL) 0.4 MG TAB SL PRN (23:30)
[2017-05-03] VITALS (13 sets, daily range): BP systolic 115–131; BP diastolic 56–85; PULSE 75–171; RESP 18–21
[2017-05-03] MEDS: HEPARIN 5,000 UNIT/0.5 ML VIAL SC SCH ×4 (00:40→21:08)
[2017-05-03 00:52] LABS: CREATINE KINASE 66 IU/L (23-200)
[2017-05-03 01:03] LABS: CK-MB 0.55 ng/ml (0.0-2.4)
[2017-05-03 01:07] LABS: TROPONIN-I < 0.012 ng/ml (0.00-0.12)
[2017-05-03 06:22] LABS: BASOPHILS % 0.6 % (0.0-2.0); EOSINOPHILS # 0.1 10^3/ul (0.0-0.5); EOSINOPHILS % 1.8 % (0.0-7.0); HEMATOCRIT 36.5 % (37.0-47.0); HEMOGLOBIN 12.6 g/dl (12.0-16.0); LYMPHOCYTES % 55.7 % (15.0-51.0); MEAN CORPUSCULAR HEMOGLOBIN 30.9 pg (29.0-33.0); MEAN CORPUSCULAR HGB CONC 34.5 g/dl (32.0-37.0); MEAN CORPUSCULAR VOLUME 89.5 fl (82.0-101.0); MEAN PLATELET VOLUME 10.8 fl (7.4-10.4); MONOCYTE # 0.5 10^3/ul (0.3-0.9); MONOCYTES % 7.5 % (0.0-11.0); NEUTROPHIL # 2.5 10^3/ul (1.6-7.5); NEUTROPHILS % 34.3 % (39.0-77.0); PLATELET COUNT 266 10^3/UL (140-415); RED BLOOD COUNT 4.08 10^6/ul (4.20-5.40); RED CELL DISTRIBUTION WIDTH 11.9 % (11.5-14.5); WHITE BLOOD COUNT 7.2 10^3/ul (4.8-10.8)
[2017-05-03 06:46] LABS: CREATINE KINASE 68 IU/L (23-200)
[2017-05-03 06:56] LABS: CK-MB 0.56 ng/ml (0.0-2.4)
[2017-05-03 07:05] LABS: TROPONIN-I < 0.012 ng/ml (0.00-0.12)
[2017-05-03 07:06] LABS: ALBUMIN 4.1 g/dl (3.3-4.9); ALBUMIN/GLOBULIN RATIO 1.17; BILIRUBIN,INDIRECT 0.6 mg/dl (0-1.1); BILIRUBIN,TOTAL 0.6 mg/dl (0.2-1.3); CALCIUM 9.6 mg/dl (8.4-10.2); CHOL/HDL RATIO 3.2 RATIO; CREATININE 0.73 mg/dl (0.44-1.00); MAGNESIUM 1.8 mg/dl (1.7-2.5); PHOSPHORUS 4.7 mg/dl (2.5-4.9); POTASSIUM 3.5 mmol/L (3.5-5.1); TOTAL PROTEIN 7.6 g/dl (6.1-8.1)
[2017-05-03 07:33] LABS: THYROID STIMULATING HORMONE 6.27 MIU/L (0.465-4.680)
[2017-05-03] MEDS: BACLOFEN 10 MG TAB PO SCH ×3 (09:04→21:00)
[2017-05-03] MEDS: ASPIRIN 81 MG TAB PO SCH (09:04)
--- NOTE | 2017-05-03 11:51 | CONS ---
Date/Time of Note Date/Time of Note DATE: 05/03/17 TIME: 11:50 Assessment/Plan Assessment/Plan Additional Assessment/Plan 37 yo with + Stress ECHO - now CP - r/o WA - will make NPO now if Dr. Boone wants to do a LHC (r/o [place] now) # full note dictated # [id number] Consultation Date/Type/Reason Admit Date/Time May 02, 2017 at 20:02 Initial Consult Date Exam/Review of Systems Vital Signs Vitals Vital Signs Date Time Temp Pulse Resp B/P Pulse Ox O2 Delivery O2 Flow Rate FiO2 05/03/17 08:14 100.0 76 20 118/64 100 05/02/17 22:07 Room Air Results Result Diagram: 05/03/17 0535 05/03/17 0535 Results 24 hrs Laboratory Tests Test 05/02/17 18:20 05/02/17 20:15 05/03/17 00:24 05/03/17 05:35 White Blood Count 6.3 # 7.2 Red Blood Count 4.34 4.08 L Hemoglobin 13.1 12.6 Hematocrit 38.8 36.5 L Mean Corpuscular Volume 89.4 89.5 Mean Corpuscular Hemoglobin 30.2 30.9 Mean Corpuscular Hemoglobin Concent 33.8 34.5 Red Cell Distribution Width 11.9 11.9 Platelet Count 264 266 Mean Platelet Volume 10.5 H 10.8 H Neutrophils % 48.2 34.3 L Lymphocytes % 42.8 55.7 H Monocytes % 7.0 7.5 Eosinophils % 1.3 1.8 Basophils % 0.5 0.6 Nucleated Red Blood Cells % 0.0 0.0 Neutrophils # 3.0 2.5 Lymphocytes # 2.7 4.0 H Monocytes # 0.4 0.5 Eosinophils # 0.1 0.1 Basophils # 0.0 0.0 Nucleated Red Blood Cells # 0.0 0.0 Sodium Level 142 142 Potassium Level 3.6 3.5 Chloride Level 103 107 Carbon Dioxide Level 28 25 Anion Gap 15 14 Blood Urea Nitrogen 11 13 Creatinine 0.76 0.73 Glucose Level 93 86 Calcium Level 9.3 9.6 Troponin I < 0.012 < 0.012 < 0.012 Bedside Urine pH (LAB) 8.5 Bedside Urine Protein (LAB) Negative Bedside Urine Glucose (UA) Negative Bedside Urine Ketones (LAB) Negative Bedside Urine Blood 1+ H Bedside Urine Nitrite (LAB) Negative Bedside Urine Leukocyte Esterase (L Negative Creatine Kinase 66 Creatine Kinase Index 0.8 Creatinine Kinase MB (Mass) 0.55 Hemoglobin A1c 4.8 Phosphorus Level 4.7 Magnesium Level 1.8 Total Bilirubin 0.6 Direct Bilirubin 0.00 Indirect Bilirubin 0.6 Aspartate Amino Transf (AST/SGOT) 26 Alanine Aminotransferase (ALT/SGPT) 36 Alkaline Phosphatase 73 Total Protein 7.6 Albumin 4.1 Globulin 3.50 H Albumin/Globulin Ratio 1.17 Triglycerides Level 105 Cholesterol Level 155 LDL Cholesterol, Calculated 86 HDL Cholesterol 48 Cholesterol/HDL Ratio 3.2 Thyroid Stimulating Hormone (TSH) 6.270 H Test 05/03/17 05:39 Creatine Kinase 68 Creatine Kinase Index 0.8 Creatinine Kinase MB (Mass) 0.56 Troponin I < 0.012 Medications Medications Current Medications Aspirin (Aspirin) 81 mg DAILY PO Last administered on 05/03/17 09:04; Admin Dose 81 MG; Start 05/03/17 at 09:00 Nitroglycerin (Nitroglycerin (Sl Tab) 0.4 Mg) 1 tab Q5M PRN SL ANGINA Last administered on 05/03/17 10:53; Admin Dose 1 TAB; Start 05/02/17 at 23:30 Heparin Sodium (Porcine) (Heparin (5000 Units/0.5 ml)) 5,000 unit BID SC Last administered on 05/03/17 00:40; Admin Dose 5,000 UNIT; Start 05/02/17 at 23: 30 Morphine Sulfate (morphine) 2 mg Q4H PRN IV PAIN LEVEL 7-10 Last administered on 05/03/17 00:45; Admin Dose 2 MG; Start 05/02/17 at 23:30 Baclofen (Lioresal) 20 mg BID PO Last administered on 05/03/17 09:04; Admin Dose 20 MG; Start 05/03/17 at 00:00 AYDIN RAYMUNDO MD May 03, 2017 11:51
--- NOTE | 2017-05-03 13:40 | CONS ---
DATE OF ADMISSION: 05/02/2017 DATE OF CONSULTATION: 05/03/2017 TYPE OF CONSULTATION: Cardiology. REFERRING PHYSICIAN: Dr. Azul. REASON FOR EVALUATION: Chest pain. HISTORY OF PRESENT ILLNESS: The patient is a patient of Dr. Boone, who had a formal stress test a nd echo which was done on 04/29/2017. Based on her report available here, the patient had some late ral ST-T depression with chest discomfort and stress test was thought to be positive. The patient h as not had an angiogram since. The patient called me yesterday and says she has had some chest disc omfort. She came into the emergency room and now she is here being admitted, I think it is reasonab le to keep the patient here overnight. We will rule her out for acute ischemia and I will defer to Dr. Boone if she wants to perform a left heart catheterization while the patient is here in the [facility]. PAST MEDICAL HISTORY: 1. Family history of coronary artery disease 2. History of tobacco abuse. 3. History of positive stress test in 03/2017 ALLERGIES: THE PATIENT IS ALLERGIC TO LIDOCAINE. SOCIAL HISTORY: Patient has a history of drug use. She does not smoke anymore, does not drink, FAMILY HISTORY: Negative for sudden cardiac or premature coronary artery disease. MEDICATIONS: Here include aspirin. baclofen, nitroglycerin, subcutaneous heparin and morphine. REVIEW OF SYSTEMS: CONSTITUTIONAL: No fevers, no chills. Chest pain. HEENT: . CARDIAC: Chest pain reported now. RESPIRATORY: Short of breath. GASTROINTESTINAL: Nausea, vomiting. GENITOURINARY: No dysuria, hematuria. NEUROLOGIC: No focal neurologic deficits. PSYCHIATRIC: History of anxiety. PHYSICAL EXAMINATION: VITAL SIGNS: Temperature is 100.0, heart rate is 72, blood pressure is 118/64. GENERAL: She is a thin woman in no acute distress, alert and oriented x3, aware of her condition. HEAD: Normocephalic, atraumatic. Eyes anicteric. NECK: Supple. JVD 6-7 cm. There is no lymphadenopathy. HEART: Regular, soft systolic murmur at the apex. PMI is nondisplaced. I do not hear an S3. LUNGS: Coarse at bases. ABDOMEN: Distended, bowel sounds are present. GENITOURINARY: Exam is intact. EXTREMITIES: No clubbing, cyanosis or edema. ECG read by me shows sinus rhythm at the rate of [address]-T changes. LABORATORY DATA: Sodium 142, potassium 3.5. Her hemoglobin is 4.8. Troponin is negative at 0.012, creatinine is normal. ASSESSMENT AND PLAN: 1. Chest pain. The patient reported chest pain based on records review, the patient had a positive stress echo. I think left heart catheterization is the next step to qualify. We will defer to . We will make patient n.p.o. tomorrow in case she decides to do a left heart catheterizatio n tomorrow. 2. Hypertension. Blood pressure well optimized now. 3. History of tobacco use, now stopped. 4. Family history of coronary artery disease as nonmodifiable risk factors. 5. History of thyroid abnormality. TSH is slightly elevated to primary team for management. I would like to thank Dr. Boone and Dr. Solano, for referring this patient for my evaluation. Dictated By: AYDIN RAYMUNDO MD ML/BRENNA Conf#: [id number] DID#: [id number]
--- NOTE | 2017-05-03 14:01 | PN ---
Date/Time of Note Date/Time of Note DATE: 05/03/17 TIME: 13:59 Assessment/Plan VTE Prophylaxis VTE Prophylaxis Intervention: LMWH Lines/Catheters IV Catheter Type (from Nrsg): Saline Lock Assessment/Plan Chief Complaint/Hosp Course S: Chest pain noted. Diaphoresis nausea vomiting. Oe: Vital signs stable sinus rhythm PE Pallor/J VD Reg no murmur rub gallop Clear bilat. Reproducible tenderness? Bs+ nt nd no RRG No edema Homans sign Assessment and plan 1. Chest pain. Possible recent abnormal echo. Stable, medical management. N.p.o. from midnight 2. Subclinical hypothyroidism 3. Chronic ataxia. Unknown etiology psychogenic? Problems: Exam/Review of Systems Vital Signs Vitals Vital Signs Date Time Temp Pulse Resp B/P Pulse Ox O2 Delivery O2 Flow Rate FiO2 05/03/17 12:09 98.5 76 19 131/85 100 05/02/17 22:07 Room Air Results Result Diagram: 05/03/17 0535 05/03/17 0535 Results 24 hrs Laboratory Tests Test 05/02/17 18:20 05/02/17 20:15 05/03/17 00:24 05/03/17 05:35 White Blood Count 6.3 # 7.2 Red Blood Count 4.34 4.08 L Hemoglobin 13.1 12.6 Hematocrit 38.8 36.5 L Mean Corpuscular Volume 89.4 89.5 Mean Corpuscular Hemoglobin 30.2 30.9 Mean Corpuscular Hemoglobin Concent 33.8 34.5 Red Cell Distribution Width 11.9 11.9 Platelet Count 264 266 Mean Platelet Volume 10.5 H 10.8 H Neutrophils % 48.2 34.3 L Lymphocytes % 42.8 55.7 H Monocytes % 7.0 7.5 Eosinophils % 1.3 1.8 Basophils % 0.5 0.6 Nucleated Red Blood Cells % 0.0 0.0 Neutrophils # 3.0 2.5 Lymphocytes # 2.7 4.0 H Monocytes # 0.4 0.5 Eosinophils # 0.1 0.1 Basophils # 0.0 0.0 Nucleated Red Blood Cells # 0.0 0.0 Sodium Level 142 142 Potassium Level 3.6 3.5 Chloride Level 103 107 Carbon Dioxide Level 28 25 Anion Gap 15 14 Blood Urea Nitrogen 11 13 Creatinine 0.76 0.73 Glucose Level 93 86 Calcium Level 9.3 9.6 Troponin I < 0.012 < 0.012 < 0.012 Bedside Urine pH (LAB) 8.5 Bedside Urine Protein (LAB) Negative Bedside Urine Glucose (UA) Negative Bedside Urine Ketones (LAB) Negative Bedside Urine Blood 1+ H Bedside Urine Nitrite (LAB) Negative Bedside Urine Leukocyte Esterase (L Negative Creatine Kinase 66 Creatine Kinase Index 0.8 Creatinine Kinase MB (Mass) 0.55 Hemoglobin A1c 4.8 Phosphorus Level 4.7 Magnesium Level 1.8 Total Bilirubin 0.6 Direct Bilirubin 0.00 Indirect Bilirubin 0.6 Aspartate Amino Transf (AST/SGOT) 26 Alanine Aminotransferase (ALT/SGPT) 36 Alkaline Phosphatase 73 Total Protein 7.6 Albumin 4.1 Globulin 3.50 H Albumin/Globulin Ratio 1.17 Triglycerides Level 105 Cholesterol Level 155 LDL Cholesterol, Calculated 86 HDL Cholesterol 48 Cholesterol/HDL Ratio 3.2 Thyroid Stimulating Hormone (TSH) 6.270 H Test 05/03/17 05:39 Creatine Kinase 68 Creatine Kinase Index 0.8 Creatinine Kinase MB (Mass) 0.56 Troponin I < 0.012 Medications Medications Current Medications Aspirin (Aspirin) 81 mg DAILY PO Last administered on 05/03/17 09:04; Admin Dose 81 MG; Start 05/03/17 at 09:00 Nitroglycerin (Nitroglycerin (Sl Tab) 0.4 Mg) 1 tab Q5M PRN SL ANGINA Last administered on 05/03/17 10:53; Admin Dose 1 TAB; Start 05/02/17 at 23:30 Heparin Sodium (Porcine) (Heparin (5000 Units/0.5 ml)) 5,000 unit BID SC Last administered on 05/03/17 00:40; Admin Dose 5,000 UNIT; Start 05/02/17 at 23: 30 Morphine Sulfate (morphine) 2 mg Q4H PRN IV PAIN LEVEL 7-10 Last administered on 05/03/17 00:45; Admin Dose 2 MG; Start 05/02/17 at 23:30 Baclofen (Lioresal) 20 mg BID PO Last administered on 05/03/17 09:04; Admin Dose 20 MG; Start 05/03/17 at 00:00 JANICE KWON MD May 03, 2017 14:01
[2017-05-03] MEDS ORDERED: IBUPROFEN 800 MG TAB PO PRN (14:30)
[2017-05-03] MEDS ORDERED: ONDANSETRON 4 MG INJ IV PRN (14:30)
--- NOTE | 2017-05-03 23:21 | HP ---
Date/Time of Note Date/Time of Note DATE: 05/03/17 TIME: 23:21 Assessment/Plan VTE Prophylaxis VTE Prophylaxis Intervention: heparin Lines/Catheters IV Catheter Type (from Nrsg): Saline Lock Assessment/Plan Assessment/Plan 1. Chest pain - pain was reproducible on palpation, however with recent positive stress test - f/u cardiology recs 2. Gait Ataxia - pt has extensive neurological tests/procedures at [facility] and [facility] with no definitive findings -she can f/u as out pt up on discharge -will attempt to obtain records from OSH and will consider neurology consult in- house HPI/ROS Admit Date/Time Admit Date/Time May 02, 2017 at 20:02 Hx of Present Illness This is a 37 yo female with hx of neurological abnormalities, mainly gait instability, "dystonia" who presented to ER with diffuse CP and SOB. CP is reproducible on palpation. SOB is worse when lying down. She recently had a positive stress test and is awaiting cardiac cath. On physical exam, CP was reproducible and she has significant gait abnormality. PMH/Family/Social Social History Smoking Status: Former smoker Exam/Review of Systems Vital Signs Vitals Vital Signs Date Time Temp Pulse Resp B/P Pulse Ox O2 Delivery O2 Flow Rate FiO2 05/03/17 20:02 92 05/03/17 16:39 98.4 21 115/56 97 05/02/17 22:07 Room Air Exam Constitutional: alert, oriented Eyes: EOMI, PERRL Respiratory: clear to auscultation, normal air movement Cardiovascular: nl pulses, regular rate and rhythm Gastrointestinal: non-tender, soft Musculoskeletal: other (chest pain with palpation of anterior chest) Extremities: normal pulses Neurological: other (significant gait ataxia) Labs Result Diagram: 05/03/17 0535 05/03/17 0535 Medications Medications Current Medications Aspirin (Aspirin) 81 mg DAILY PO Last administered on 05/03/17 09:04; Admin Dose 81 MG; Start 05/03/17 at 09:00 Nitroglycerin (Nitroglycerin (Sl Tab) 0.4 Mg) 1 tab Q5M PRN SL ANGINA Last administered on 05/03/17 10:53; Admin Dose 1 TAB; Start 05/02/17 at 23:30 Heparin Sodium (Porcine) (Heparin (5000 Units/0.5 ml)) 5,000 unit BID SC Last administered on 05/03/17 00:40; Admin Dose 5,000 UNIT; Start 05/02/17 at 23: 30 Morphine Sulfate (morphine) 2 mg Q4H PRN IV PAIN LEVEL 7-10 Last administered on 05/03/17 00:45; Admin Dose 2 MG; Start 05/02/17 at 23:30 Baclofen (Lioresal) 20 mg BID PO Last administered on 05/03/17 09:04; Admin Dose 20 MG; Start 05/03/17 at 00:00 Ondansetron HCl (Zofran Inj) 4 mg Q4H PRN IV NAUSEA AND/OR VOMITING; Start at 14:30 Ibuprofen (Motrin) 800 mg Q6H PRN PO MODERATE PAIN LEVEL 4-6; Start 05/03/17 at 14:30 ANDRZEJ LUU MD May 03, 2017 23:21
[2017-05-04] VITALS (11 sets, daily range): BP systolic 116–145; BP diastolic 64–75; PULSE 70–95; RESP 18–20
[2017-05-04 07:24] LABS: BASOPHILS % 0.3 % (0.0-2.0); EOSINOPHILS # 0.2 10^3/ul (0.0-0.5); EOSINOPHILS % 2.7 % (0.0-7.0); HEMATOCRIT 38.1 % (37.0-47.0); HEMOGLOBIN 12.9 g/dl (12.0-16.0); LYMPHOCYTES # 2.8 10^3/ul (0.8-2.9); LYMPHOCYTES % 45.7 % (15.0-51.0); MEAN CORPUSCULAR HEMOGLOBIN 30.4 pg (29.0-33.0); MEAN CORPUSCULAR HGB CONC 33.9 g/dl (32.0-37.0); MEAN CORPUSCULAR VOLUME 89.9 fl (82.0-101.0); MEAN PLATELET VOLUME 10.7 fl (7.4-10.4); MONOCYTE # 0.5 10^3/ul (0.3-0.9); MONOCYTES % 8.4 % (0.0-11.0); NEUTROPHIL # 2.7 10^3/ul (1.6-7.5); NEUTROPHILS % 42.7 % (39.0-77.0); PLATELET COUNT 268 10^3/UL (140-415); RED BLOOD COUNT 4.24 10^6/ul (4.20-5.40); RED CELL DISTRIBUTION WIDTH 12.1 % (11.5-14.5); WHITE BLOOD COUNT 6.2 10^3/ul (4.8-10.8)
[2017-05-04 07:54] LABS: ALANINE AMINOTRANSFERASE 36 IU/L (13-69); ALBUMIN 3.8 g/dl (3.3-4.9); ALBUMIN/GLOBULIN RATIO 1.08; ALKALINE PHOSPHATASE 62 IU/L (42-121); ANION GAP 13 (8-16); ASPARTATE AMINO TRANSFERASE 24 IU/L (15-46); BILIRUBIN,INDIRECT 0.7 mg/dl (0-1.1); BILIRUBIN,TOTAL 0.7 mg/dl (0.2-1.3); BLOOD UREA NITROGEN 14 mg/dl (7-20); CALCIUM 9.7 mg/dl (8.4-10.2); CARBON DIOXIDE 27 mmol/L (21-31); CHLORIDE 108 mmol/L (97-110); CREATININE 0.79 mg/dl (0.44-1.00); GLUCOSE 94 mg/dl (70-220); INR 0.96; PHOSPHORUS 4.5 mg/dl (2.5-4.9); POTASSIUM 4.4 mmol/L (3.5-5.1); PROTIME 12.8 Sec (12.2-14.2); SODIUM 144 mmol/L (135-144); TOTAL PROTEIN 7.3 g/dl (6.1-8.1)
[2017-05-04 08:02] LABS: TROPONIN-I < 0.012 ng/ml (0.00-0.12)
[2017-05-04 08:09] LABS: TRIIODOTHYRONINE 1.83 ng/ml (0.97-1.69)
[2017-05-04] MEDS: ASPIRIN 81 MG TAB PO SCH (08:26)
[2017-05-04] MEDS: BACLOFEN 10 MG TAB PO SCH ×2 (08:33→20:57)
[2017-05-04] MEDS: HEPARIN 5,000 UNIT/0.5 ML VIAL SC SCH ×2 (08:33→20:57)
--- NOTE | 2017-05-04 16:21 | PN ---
Date/Time of Note Date/Time of Note DATE: 05/04/17 TIME: 16:19 Assessment/Plan VTE Prophylaxis VTE Prophylaxis Intervention: SCD's Lines/Catheters IV Catheter Type (from Nrsg): Saline Lock Assessment/Plan Assessment/Plan 37 yo F with neurological disorder here with chest pain #chest pain: likely inpatient angiogram pending per cardiology cont asa 81 NO NSAIDS until CAD ruled out #neurologic disorder: continued outpatient follow up cont home meds Subjective 24 Hr Interval Summary Free Text/Dictation States chest discomfort worst when she lies flat Exam/Review of Systems Vital Signs Vitals Vital Signs Date Time Temp Pulse Resp B/P Pulse Ox O2 Delivery O2 Flow Rate FiO2 05/04/17 16:10 93 05/04/17 16:03 98.0 20 116/68 99 05/04/17 04:00 Room Air Intake and Output 05/03/17 05/03/17 05/04/17 15:00 23:00 07:00 Intake Total 480 ml 300 ml Balance 480 ml 300 ml Exam nad no mrg lungs clear abd soft Results Result Diagram: 05/04/17 0628 05/04/17 0628 Results 24 hrs Laboratory Tests Test 05/04/17 06:28 White Blood Count 6.2 Red Blood Count 4.24 Hemoglobin 12.9 Hematocrit 38.1 Mean Corpuscular Volume 89.9 Mean Corpuscular Hemoglobin 30.4 Mean Corpuscular Hemoglobin Concent 33.9 Red Cell Distribution Width 12.1 Platelet Count 268 Mean Platelet Volume 10.7 H Neutrophils % 42.7 Lymphocytes % 45.7 Monocytes % 8.4 Eosinophils % 2.7 Basophils % 0.3 Nucleated Red Blood Cells % 0.0 Neutrophils # 2.7 Lymphocytes # 2.8 Monocytes # 0.5 Eosinophils # 0.2 Basophils # 0.0 Nucleated Red Blood Cells # 0.0 Prothrombin Time 12.8 Prothrombin Time Ratio 1.0 INR International Normalized Ratio 0.96 Sodium Level 144 Potassium Level 4.4 Chloride Level 108 Carbon Dioxide Level 27 Anion Gap 13 Blood Urea Nitrogen 14 Creatinine 0.79 Glucose Level 94 Calcium Level 9.7 Phosphorus Level 4.5 Magnesium Level 2.0 Total Bilirubin 0.7 Direct Bilirubin 0.00 Indirect Bilirubin 0.7 Aspartate Amino Transf (AST/SGOT) 24 Alanine Aminotransferase (ALT/SGPT) 36 Alkaline Phosphatase 62 Troponin I < 0.012 Total Protein 7.3 Albumin 3.8 Globulin 3.50 H Albumin/Globulin Ratio 1.08 Lipase 135 Free Thyroxine 1.29 Total Triiodothyronine 1.83 H Medications Medications Current Medications Aspirin (Aspirin) 81 mg DAILY PO Last administered on 05/04/17 08:26; Admin Dose 81 MG; Start 05/03/17 at 09:00 Nitroglycerin (Nitroglycerin (Sl Tab) 0.4 Mg) 1 tab Q5M PRN SL ANGINA Last administered on 05/03/17 10:53; Admin Dose 1 TAB; Start 05/02/17 at 23:30 Heparin Sodium (Porcine) (Heparin (5000 Units/0.5 ml)) 5,000 unit BID SC Last administered on 05/03/17 00:40; Admin Dose 5,000 UNIT; Start 05/02/17 at 23: 30 Morphine Sulfate (morphine) 2 mg Q4H PRN IV PAIN LEVEL 7-10 Last administered on 05/03/17 00:45; Admin Dose 2 MG; Start 05/02/17 at 23:30 Baclofen (Lioresal) 20 mg BID PO Last administered on 05/03/17 09:04; Admin Dose 20 MG; Start 05/03/17 at 00:00 Ondansetron HCl (Zofran Inj) 4 mg Q4H PRN IV NAUSEA AND/OR VOMITING; Start at 14:30 Ibuprofen (Motrin) 800 mg Q6H PRN PO MODERATE PAIN LEVEL 4-6; Start 05/03/17 at 14:30 JOLYNN BUSTOS MD May 04, 2017 16:21
--- NOTE | 2017-05-04 20:13 | CONS ---
Date/Time of Note Date/Time of Note DATE: 05/04/17 TIME: 20:10 Assessment/Plan Assessment/Plan Chief Complaint/Hosp Course IMP: 1.chest pain-negative trop x 3 2. abnl ecg-anterior t wave inversion 3.abnormal DSE 4 Gait abnormality Recc; -Continue asa -would start oral anitrates -d/c planning with outpatient bf/u and cath Problems: Consultation Date/Type/Reason Admit Date/Time May 02, 2017 at 20:02 Initial Consult Date 05/02/2017 Type of Consultation: Cardiology Reason for Consultation chest pain Referring Provider: SERGIO PARSONS Exam/Review of Systems Vital Signs Vitals Vital Signs Date Time Temp Pulse Resp B/P Pulse Ox O2 Delivery O2 Flow Rate FiO2 05/04/17 16:10 93 05/04/17 16:03 98.0 20 116/68 99 05/04/17 04:00 Room Air Intake and Output 05/03/17 05/03/17 05/04/17 15:00 23:00 07:00 Intake Total 480 ml 300 ml Balance 480 ml 300 ml Exam Review of Systems: CONSTITUTIONAL: No fevers, chills. PULMONARY: No sob CARDIOVASCULAR: No chest pain/palpitations GASTROINTESTINAL: No nausea/vomiting. GENITOURINARY: No hematuria/dysuria. MUSCULOSKELETAL: No myagias/arthalgias. PSYCHIATRIC: The patient denies depression. NEUROLOGIC: No weakness Constitutional: alert, oriented Psych: no complaints Head: normocephalic ENMT: mucosa pink and moist Neck: jvd (9 cm water), supple Respiratory: diminished breath sounds (at bases/B) Cardiovascular: regular rate and rhythm Gastrointestinal: non-tender, soft Musculoskeletal: muscle tone (normal) Extremities: edema (none) Neurological: other (NO focal deficits) Results Result Diagram: 05/04/1728 05/04/1728 Results 24 hrs Laboratory Tests Test 05/04/17 06:28 White Blood Count 6.2 Red Blood Count 4.24 Hemoglobin 12.9 Hematocrit 38.1 Mean Corpuscular Volume 89.9 Mean Corpuscular Hemoglobin 30.4 Mean Corpuscular Hemoglobin Concent 33.9 Red Cell Distribution Width 12.1 Platelet Count 268 Mean Platelet Volume 10.7 H Neutrophils % 42.7 Lymphocytes % 45.7 Monocytes % 8.4 Eosinophils % 2.7 Basophils % 0.3 Nucleated Red Blood Cells % 0.0 Neutrophils # 2.7 Lymphocytes # 2.8 Monocytes # 0.5 Eosinophils # 0.2 Basophils # 0.0 Nucleated Red Blood Cells # 0.0 Prothrombin Time 12.8 Prothrombin Time Ratio 1.0 INR International Normalized Ratio 0.96 Sodium Level 144 Potassium Level 4.4 Chloride Level 108 Carbon Dioxide Level 27 Anion Gap 13 Blood Urea Nitrogen 14 Creatinine 0.79 Glucose Level 94 Calcium Level 9.7 Phosphorus Level 4.5 Magnesium Level 2.0 Total Bilirubin 0.7 Direct Bilirubin 0.00 Indirect Bilirubin 0.7 Aspartate Amino Transf (AST/SGOT) 24 Alanine Aminotransferase (ALT/SGPT) 36 Alkaline Phosphatase 62 Troponin I < 0.012 Total Protein 7.3 Albumin 3.8 Globulin 3.50 H Albumin/Globulin Ratio 1.08 Lipase 135 Free Thyroxine 1.29 Total Triiodothyronine 1.83 H Medications Medications Current Medications Aspirin (Aspirin) 81 mg DAILY PO Last administered on 05/04/17 08:26; Admin Dose 81 MG; Start 05/03/17 at 09:00 Nitroglycerin (Nitroglycerin (Sl Tab) 0.4 Mg) 1 tab Q5M PRN SL ANGINA Last administered on 05/03/17 10:53; Admin Dose 1 TAB; Start 05/02/17 at 23:30 Heparin Sodium (Porcine) (Heparin (5000 Units/0.5 ml)) 5,000 unit BID SC Last administered on 05/03/17 00:40; Admin Dose 5,000 UNIT; Start 05/02/17 at 23: 30 Morphine Sulfate (morphine) 2 mg Q4H PRN IV PAIN LEVEL 7-10 Last administered on 05/03/17 00:45; Admin Dose 2 MG; Start 05/02/17 at 23:30 Baclofen (Lioresal) 20 mg BID PO Last administered on 05/03/17 09:04; Admin Dose 20 MG; Start 05/03/17 at 00:00 Ondansetron HCl (Zofran Inj) 4 mg Q4H PRN IV NAUSEA AND/OR VOMITING; Start at 14:30 LINDA BOSS 27, 2017 20:13
[2017-05-05] VITALS (12 sets, daily range): BP systolic 114–172; BP diastolic 63–93; PULSE 77–100; RESP 19–20
[2017-05-05] MEDS ORDERED: KETOROLAC 30 MG INJ IV STA (05:01)
[2017-05-05] MEDS: ASPIRIN 81 MG TAB PO SCH (08:59)
[2017-05-05] MEDS: HEPARIN 5,000 UNIT/0.5 ML VIAL SC SCH (09:00)
[2017-05-05] MEDS: BACLOFEN 10 MG TAB PO SCH (09:00)
--- NOTE | 2017-05-05 10:26 | CONS ---
Date/Time of Note Date/Time of Note DATE: 05/05/17 TIME: 10:21 Assessment/Plan Assessment/Plan Additional Assessment/Plan 1. Chest pain. The patient reported chest pain based on records review, the patient had a positive stress echo. I think left heart catheterization is the next step to qualify. LHC to be scheduled Thursday at 9 am - OK to d/c home - pt to return Thursday for LHC. Pt agrees. 2. Hypertension. Blood pressure well optimized now. STABLE. 3. History of tobacco use, now stopped. 4. Family history of coronary artery disease as non-midifiable risk factors. 5. History of thyroid abnormality. TSH is slightly elevated to primary team for management. Consultation Date/Type/Reason Admit Date/Time May 02, 2017 at 20:02 Type of Consultation: Cardiology Referring Provider: SERGIO PARSONS 24 HR Interval Summary Free Text/Dictation NO acute events - BP stable - in good range now - plan for LHC on Thursday. ROS: No fever, no chills, no nausea, no vomiting, no diarrhea/constipation No recent weight changes No chest pain, no PND, no orthopnea No dizziness, blurred vision No thirst, no heat or cold intolerance Exam/Review of Systems Vital Signs Vitals Vital Signs Date Time Temp Pulse Resp B/P Pulse Ox O2 Delivery O2 Flow Rate FiO2 05/05/17 08:30 Nasal Cannula 05/05/17 08:12 85 05/05/17 08:02 98.0 20 134/93 100 Intake and Output 05/04/17 05/04/17 05/05/17 15:00 23:00 07:00 Intake Total 1000 ml 250 ml Balance 1000 ml 250 ml Exam General: WN/WD/NAD, AOx 3 HEENT: Unicetric/atraumatic/EOMI (follows commands) NECK: JVD elevated, no thyromegaly Lymph: no lymphadenopathy HEART: regular with no S3, II/ systolic murmur at apex LUNGS: Coarse sounds ABD: soft, NT, ND, +BS : Intact Neuro: non focal SKIN: chronic changes EXT: trace edema Results Result Diagram: 05/04/1762705/04/17627 Medications Medications Current Medications Aspirin (Aspirin) 81 mg DAILY PO Last administered on 05/05/17t 08:59; Admin Dose 81 MG; Start 05/03/17 at 09:00 Nitroglycerin (Nitroglycerin (Sl Tab) 0.4 Mg) 1 tab Q5M PRN SL ANGINA Last administered on 05/03/17 10:53; Admin Dose 1 TAB; Start 05/02/17 at 23:30 Heparin Sodium (Porcine) (Heparin (5000 Units/0.5 ml)) 5,000 unit BID SC Last administered on 05/03/17 00:40; Admin Dose 5,000 UNIT; Start 05/02/17 at 23: 30 Morphine Sulfate (morphine) 2 mg Q4H PRN IV PAIN LEVEL 7-10 Last administered on 05/03/17 00:45; Admin Dose 2 MG; Start 05/02/17 at 23:30 Baclofen (Lioresal) 20 mg BID PO Last administered on 05/03/17 09:04; Admin Dose 20 MG; Start 05/03/17 at 00:00 Ondansetron HCl (Zofran Inj) 4 mg Q4H PRN IV NAUSEA AND/OR VOMITING; Start at 14:30 AYDIN RAYMUNDO MD May 05, 2017 10:26
--- NOTE | 2017-05-05 14:15 | RADRPT ---
Vent Rate: 76 bpm RR Interval: 0 msec [place] Interval: 118 msec QRS Duration: 86 msec QT Interval: 408 msec QTC Interval: 459 msec P-R-T [place]: 70 - 81 - 74 degrees Normal sinus rhythm Normal ECG Electronically Signed By: Moo Joseph [id number]
[2017-05-05] MEDS ORDERED: IOHEXOL 100 ML ONE (18:52)
[2017-05-05] MEDS ORDERED: SOD CHLORIDE 0.9% 100 ML ONE (18:52)
--- NOTE | 2017-05-05 18:59 | PDOCDIS ---
Discharge Instructions CONDITION Patient Condition: Stable FOLLOW UP/APPOINTMENTS Follow-up Plan Bring your CT results to your hair[employer] truing inspector You already know about the cardiac angiogram you have scheduled for Thursday Bring your thyroid blood test results to your director cpg JOLYNN BUSTOS MD May 05, 2017 18:59
[2017-05-05] MEDS ORDERED: ASPI81TA3 PO (19:00)
--- NOTE | 2017-05-05 19:03 | DS ---
Date/Time of Note Date/Time of Note DATE: 05/05/17 TIME: 19:00 Discharge Summary Admission/Discharge Info Admit Date/Time May 02, 2017 at 20:02 Discharge Date/Time Discharge Diagnosis chest pain Patient Condition: Stable Consults cardiology Procedures 05.02 chest xr IMPRESSION: No acute intrathoracic abnormality. UA 1+ blood 05.05: CT PE protocol: IMPRESSION: 1. No evidence for pulmonary embolus. 2. No aortic aneurysm or dissection. 3. Otherwise negative. a1c 4.8 LDL 86 troponin neg x 5 thyroid blood work TSH 6.27 free t4 1.29 total t3 1.83 Hx of Present Illness This is a 37 yo female with hx of neurological abnormalities, mainly gait instability, "dystonia" who presented to ER with diffuse CP and SOB. CP is reproducible on palpation. SOB is worse when lying down. She recently had a positive stress test and is awaiting cardiac cath. On physical exam, CP was reproducible and she has significant gait abnormality. Hospital Course Pt admitted for chest pain. Given recent abnormal stress echo, cardiology was consulted. Cardiology advised outpatient [facility] which has been scheduled for this Thursday. Pt started on asa for CAD prevention. BP not elevated so no indication for BP medications. Of note, pt's TFTs were checked during her stay. Pt already follows with an pensionholder information clerk and was advised to bring the thyroid results to him/her. Given pt's c/o shortness of breath when laying down at times, a CT PE protocol was obtained. The results of this study were still pending at time of the writing of this discharge summary but will be communicated to the patient prior to discharge and will be added to this document when they are available. UA with 1+ blood. Pt to follow up with PCP for repeat UA Home Meds Active Scripts Aspirin (Aspirin) 81 Mg Chew, 81 MG PO DAILY for 30 Days, #30 TAB Prov:JOLYNN BUSTOS MD 05/05/17 Follow-up Plan Bring your CT results to your chemic mangler You already know about the cardiac angiogram you have scheduled for Thursday Bring your thyroid blood test results to your pensionholder information clerk Primary Care Provider Valencia Valentine MD Time spent on discharge: > 30 minutes Copies To: CC: LINDA BOSS; AYDIN RAYMUNDO MD, ELLEN MD May 05, 2017 19:03
--- NOTE | 2017-05-05 19:33 | RADRPT ---
PROCEDURE: CT Chest with IV contrast. CLINICAL INDICATION: Shortness of breath TECHNIQUE: CT scan of the chest was performed on a multidetector scanner. The patient was scanned following the uncomplicated intravenous administration of 100 cc of Omnipaque 350 contrast. 3D, co laurel and sagittal reformatted images were obtained from the axial source images. Images were review ed on a high-resolution PACS workstation. The total exam CTDlvol = 47 mGy and DLP = 191 mGy-cm. One of the following 3 dose reduction techniques were used: Automated exposure control; adjustment of th e mA and/or kV according to patient size; or use of iterative reconstruction technique. DICOM image s are available. COMPARISON: Chest x-ray 05/02/2070 FINDINGS: No filling defects are identified within the pulmonary arteries to suggest pulmonary artery thrombos is. Thoracic aorta is normal caliber without aneurysm or dissection. There is no mediastinal or hi lar lymphadenopathy or mass. Heart is normal size. No pericardial fluid or thickening. There is no focal infiltrate. There is no pleural effusion. There is no pneumothorax. There are no fractures. Chest wall is unremarkable. Imaging obtained through the upper abdomen reveals no acute abnormality. IMPRESSION: 1. No evidence for pulmonary embolus. 2. No aortic aneurysm or dissection. 3. Otherwise negative. RPTAT: HMVK .Moo Block MD, Date Time Electronically viewed and signed by .Moo Block MD, on 05/05/2017 19:33 .K/
== END 2017-05-05 23:07 | disposition home or self-care (01) ==
LOC: E/R 15:42 → MS4 20:02
PROVIDERS: ADMIT Internal Medicine; ATTEND Internal Medicine
DX: R07.9 Chest pain, unspecified (principal); I10 Essential (primary) hypertension; R26.0 Ataxic gait; Z88.4 Allergy status to anesthetic agent; Z87.891 Personal history of nicotine dependence; Z82.49 Family history of ischemic heart disease and other diseases of the circulatory system
CPT/HCPCS: 36415; 71010; 71275; 80048; 80053; 80061; 81003; 82550; 82553; 83036; 83690; 83735; 84100; 84439; 84443; 84480; 84484; 85025; 85610; 93005; 99285; G0378; J1644; J1885; J2270; Q9967

== ENCOUNTER 2017-05-08 07:09 | Day surgery (SDC) | payer BC ==
[~2017-05-08] VITALS: Ht 167.6 cm; Wt 63.8 kg
[2017-05-08] VITALS (26 sets, daily range): BP systolic 95–131; BP diastolic 62–81; PULSE 75–104; RESP 13–41; Ht 167.6 cm; Wt 63.8 kg
[~2017-05-08 07:09] MED LIST: ASPI81TA3 PO
[2017-05-08 08:22] LABS: BASOPHIL # 0.1 10^3/ul (0.0-0.1); BASOPHILS % 0.9 % (0.0-2.0); EOSINOPHILS # 0.1 10^3/ul (0.0-0.5); EOSINOPHILS % 2.1 % (0.0-7.0); HEMATOCRIT 37.6 % (37.0-47.0); LYMPHOCYTES # 2.6 10^3/ul (0.8-2.9); LYMPHOCYTES % 45.8 % (15.0-51.0); MEAN CORPUSCULAR HEMOGLOBIN 30.7 pg (29.0-33.0); MEAN CORPUSCULAR HGB CONC 34.6 g/dl (32.0-37.0); MEAN CORPUSCULAR VOLUME 88.9 fl (82.0-101.0); MEAN PLATELET VOLUME 10.3 fl (7.4-10.4); MONOCYTE # 0.4 10^3/ul (0.3-0.9); MONOCYTES % 7.6 % (0.0-11.0); NEUTROPHIL # 2.5 10^3/ul (1.6-7.5); NEUTROPHILS % 43.4 % (39.0-77.0); PLATELET COUNT 262 10^3/UL (140-415); RED BLOOD COUNT 4.23 10^6/ul (4.20-5.40); RED CELL DISTRIBUTION WIDTH 11.9 % (11.5-14.5); WHITE BLOOD COUNT 5.7 10^3/ul (4.8-10.8)
[2017-05-08 08:43] LABS: CALCIUM 9.6 mg/dl (8.4-10.2); CREATININE 0.72 mg/dl (0.44-1.00); POTASSIUM 3.8 mmol/L (3.5-5.1)
[2017-05-08 08:46] LABS: INR 0.98; PROTIME 13.1 Sec (11.9-14.9)
[2017-05-08 08:47] LABS: PARTIAL THROMBOPLASTIN TIME 30.9 Sec (25.0-35.0)
[2017-05-08] MEDS ORDERED: LIDOCAINE 1% (MDV) 20 ML INJ ONE (08:54)
[2017-05-08] MEDS ORDERED: HEPARIN 1000 UNITS/NS (A-LINE) 1,000 ML ONE (08:54)
[2017-05-08] MEDS ORDERED: HEPARIN 1000 UNITS/ML 10 ML INJ ONE (08:54)
[2017-05-08] MEDS ORDERED: MIDAZOLAM 1 MG/ML 2 ML INJ ONE (08:55)
[2017-05-08] MEDS ORDERED: FENTAnyl 50 MCG/ML VIAL ONE (08:55)
[2017-05-08] MEDS ORDERED: VERAPAMIL 5 MG INJ ONE (08:55)
[2017-05-08] MEDS ORDERED: NITROGLYCERIN (IC) 100 MCG/ML INJ ONE (08:55)
[2017-05-08] MEDS ORDERED: SOD CHLORIDE 0.9% 1,000 ML IV SCH (10:20)
--- NOTE | 2017-05-08 10:20 | SIPON ---
Date/Time of Note Date/Time of Note DATE: 05/08/17 TIME: 10:17 Operative Report Preoperative Diagnosis 1.Chest pain 2.abnl mpi Postoperative Diagnosis 1.Non-obstructive cad Operation/Procedure Performed 1.[facility] Surgeon see signature line senior care assistant 1.Stephan Anesthesia: moderate sedation Estimated blood loss: minimal Transfusion Required none Specimen NA Grafts/Implants none Complications none LINDA BOSS May 08, 2017 10:20
[2017-05-08] MEDS ORDERED: ONDANSETRON 4 MG INJ IV PRN (10:30)
[2017-05-08] MEDS ORDERED: AL HYDROX/MG HYDROX/SIMETH 30 ML CUP PO PRN (10:30)
--- NOTE | 2017-05-08 12:22 | CARRPT ---
DATE OF PROCEDURE: 05/08/2017 TYPE OF PROCEDURE: 1. Left heart catheterization. 2. Coronary angiography. 3. Left ventriculogram. 4. Moderate conscious sedation. ATTENDING PHYSICIAN: Linda Boone MD REFERRING PHYSICIAN: Lindsay Serna MD. INDICATION: Chest pain and positive stress test findings for ischemia. TYPE OF ANESTHESIA: Conscious and local. BRIEF HISTORY: Ms. Porter a 37-year-old female who had initially presented with complaints of substernal chest pain and was placed on maximal medical therapy. The patient subsequently underwent a dobutamine stress echo due to abnormal electrocardiogram, which returned positive for possible stress-induced ischemia. Given these findings, the patient was referred for and presents today in order to undergo left heart catheterization to assess for the possibility of significant obstructive coronary artery disease lending to symptoms of chest pain and positive stress test. DESCRIPTION OF PROCEDURE: After informed consent was obtained, the patient was brought to [facility] cardiac lab tester where her right radial artery was prepped and draped in usual sterile fashion. Lidocaine 2% was infiltrated into the right radial artery in order to achieve adequate anesthesia. With modified Seldinger technique, the right femoral artery was cannulated and a 6-Mauritanian arterial sheath was placed. A 6-Mauritanian JL3.5 catheter was used to cath the left main coronary ostium. With contrast injection, multiple views of the left coronary arterial system were obtained. JL3.5 guidewire and JR4 was used to cannulate the right coronary arterial ostium. With contrast injection, multiple views of the right coronary arterial system were obtained. JL4 was removed over a guidewire and a 6-Mauritanian pigtail was passed down the ascending aorta into the LV. LVEDP was measured and LV gram was done by power injection and it was pulled back across the aortic valve to assess for significant gradient, which there was not and subsequently removed. At this time, the patient's sheath was removed. TR band was applied. There were no noted complications. FINDINGS: CORONARY ANGIOGRAPHY: The patient generally has a very vertical heart and therefore, altered anatomy. Left main 4 mm, no significant stenoses. Circumflex proximally is a 2.5 mm vessel and has no significant focal stenoses. The LAD proximally is a 3.5 mm vessel and has no significant focal stenoses. Very mild luminal irregularities of 10% to 20% in the proximal portion. There is a proximal and mid branching diagonal, each approximately 2 mm with no significant focal stenoses. The patient's right coronary artery proximally is a 3-mm vessel and has significant focal stenosis throughout its entirety. It is a dominant vessel, gives off a 2 mm PDA with no significant focal stenoses and a 2.5 mm posterolateral branch with no significant focal stenoses. Left ventriculogram revealed left ventricular ejection fraction preserved at 60% , left ventricular end diastolic pressure of 21 to 22. No significant aortic stenosis by gradient, 1+ mitral regurgitation. TOTAL FLUOROSCOPY TIME: 3.4 minutes. TOTAL CONTRAST: 95 mL. IMPRESSION: 1. Essentially normal coronary arteries with very mild nonobstructive coronary artery disease. 2. Preserved left ventricular systolic function. 3. Elevated left heart filling pressures. 4. No significant aortic stenosis by gradient. RECOMMENDATIONS: In light of procedure findings at this time would: 1. Maximize medical management. 2. Aggressive risk factor reduction. 3. The patient will be readmitted to the same day surgery center for post-cath observation and continued management with probable discharge later this afternoon. Dictated By: LINDA WINTERS/BRENNA Conf#: [id number] DID#: [id number] CC: LINDSAY SERNA MD;*EndCC* MTDD
--- NOTE | 2017-05-11 13:22 | RADRPT ---
Vent Rate: 68 bpm RR Interval: 0 msec UT Interval: 116 msec QRS Duration: 90 msec QT Interval: 402 msec QTC Interval: 427 msec P-R-T [place]: 72 - 83 - 74 degrees Normal sinus rhythm Normal ECG Electronically Signed By: Moo Joseph [id number]
== END 2017-05-08 14:49 | disposition home or self-care (01) ==
LOC: SDS 07:09
PROVIDERS: ATTEND Internal Medicine
DX: I25.10 Atherosclerotic heart disease of native coronary artery without angina pectoris (principal); R94.39 Abnormal result of other cardiovascular function study
CPT/HCPCS: 80048; 80061; 85025; 85610; 85730; 93005; 93458; C1887; J1644; J2250; J3010